=== PATIENT | female | born 1955 ===

== ENCOUNTER 2017-10-02 16:52 | Inpatient (IN) | payer OTHER ==
[2017-10-02 18:21] LABS: BASO % 0.5 % (0.0-2.0); EOS % 0.5 % (0.0-4.0); HEMOGLOBIN 8.5 g/dL (11.0-16.0); LYMPH # 2.8 K/uL (1.0-4.3); LYMPH % 37.4 % (20.0-40.0); MEAN CELL VOLUME 88.1 fL (81.0-99.0); MEAN CORPUSCULAR HEMOGLOBIN 27.8 pg (27.0-31.0); MEAN CORPUSCULAR HGB CONC 31.6 g/dL (33.0-37.0); MEAN PLATELET VOLUME 8.9 fL (7.2-11.7); MONO # 0.4 K/uL (0.0-0.8); MONO % 5.4 % (0.0-10.0); NEUT # 4.2 K/uL (1.8-7.0); NEUT % 56.2 % (50.0-75.0); NRBC % 0.1 % (0.0-2.0); RBC 3.06 Mil/uL (3.80-5.20); RED CELL DISTRIBUTION WIDTH 24.2 % (11.5-14.5); WHITE BLOOD COUNT 7.5 K/uL (4.8-10.8)
[2017-10-02 18:43] LABS: INR 1.1; PROTHROMBIN TIME 11.9 SECONDS (9.7-12.2)
[2017-10-02 18:44] LABS: ALBUMIN 4.3 g/dL (3.5-5.0); ALT/SGPT 32 U/L (9-52); AST/SGOT 39 U/L (14-36); BLOOD UREA NITROGEN 14 mg/dL (7-17); CALCIUM 9.5 mg/dl (8.6-10.4); GFR AFRICAN-AMERICAN > 60; GFR NON-AFRICAN AMERICAN > 60
[2017-10-02 18:56] LABS: B-TYPE NATRIURETIC PEPTIDE 1110 pg/mL (0-900)
--- NOTE | 2017-10-02 20:47 | C.PDOC ---
History Of Present Illness Pt was sent in by Dr. Krishnan for admission due to anemia, abnormal EKG and symptomatic pt. Time Seen by Provider: 10/02/17 17:47 Chief Complaint (Nursing): Shortness Of Breath History Per: Patient Onset/Duration Of Symptoms: Days Current Symptoms Are (Timing): Still Present Exacerbating Factor(s): Exertion Severity: Moderate Associated Symptoms: Heart Racing, Light-headedness, Other (Malaise/weakness) Additional History Per: Prior Records Past Medical History Reviewed: Historical Data, Nursing Documentation, Vital Signs Vital Signs: Last Vital Signs Temp 99.1 F 10/02/17 19:57 Pulse 75 10/02/17 19:57 Resp 20 10/02/17 19:57 BP 116/57 L 10/02/17 19:57 Pulse Ox 97 10/02/17 19:57 - Medical History PMH: HTN, Hypercholesterolemia Surgical History: Appendectomy, Cholecystectomy Family History: States: Unknown Family Hx - Social History Hx Alcohol Use: No Hx Substance Use: No - Immunization History Hx Tetanus Toxoid Vaccination: No Hx Influenza Vaccination: Yes Hx Pneumococcal Vaccination: Yes Review Of Systems Except As Marked, All Systems Reviewed And Found Negative. Constitutional: Positive for: Malaise. Negative for: Fever Cardiovascular: Positive for: Light Headedness. Negative for: Chest Pain Respiratory: Positive for: SOB with Excertion. Negative for: Hemoptysis Gastrointestinal: Negative for: Vomiting, Abdominal Pain Musculoskeletal: Negative for: Neck Pain Skin: Negative for: Rash Neurological: Negative for: Weakness, Numbness, Seizures Physical Exam - Physical Exam Appears: Non-toxic, No Acute Distress Skin: Warm, Dry, Pale Head: Atraumatic, Normacephalic Eye(s): bilateral: PERRL, EOMI Neck: Normal ROM, Supple Cardiovascular: Rhythm Regular Respiratory: Normal Breath Sounds, No Accessory Muscle Use Gastrointestinal/Abdominal: Soft, No Tenderness Rectal: Heme Negative, No Mass Back: No CVA Tenderness Extremity: Normal ROM, Pedal Edema, No Calf Tenderness Neurological/Psych: Oriented x3, Normal Motor, Normal Sensation ED Course And Treatment - Laboratory Results Result Diagrams: 10/02/17 18:14 10/02/17 18:14 Lab Interpretation: Abnormal Interpretation Of Abnormal: Anemia. Elevated BNP. ECG: Interpreted By Me, Viewed By Me ECG Rhythm: Sinus Rhythm, Nonspecific Changes ECG Interpretation: Abnormal Interpretation Of ECG: LVH with strain pattern Rate From EC O2 Sat by Pulse Oximetry: 97 Pulse Ox Interpretation: Normal - Radiology CXR: Interpreted by Me, Viewed By Me CXR Interpretation: Yes: Cardiomegaly Disposition Discussed With DrTrey: Teofilo Baker Comment: He accepted pt on hospitalist service. Doctor Will See Patient In The: Hospital Counseled Patient/Family Regarding: Studies Performed, Diagnosis - Disposition Disposition: HOSPITALIZED Disposition Time: 20:30 Condition: FAIR - Clinical Impression Clinical Impression: New onset of congestive heart failure, Anemia
--- NOTE | 2017-10-02 21:45 | CP.PCM.HP ---
<Melany Nails - Last Filed: 10/03/17 00:22> History of Present Illness - History of Present Illness History of Present Illness: CC: "I have anemia." HPI: 62 year old female with past medical history of new onset anemia, HTN and HLD presents to the ER for anemia. Patient was sent over by Dr. Krishnan due to lab values. Patient states she was diagnosed when she went to have routine lab work done about a month ago. She states for the past month she has been feeling dizzy, tired, headache and palpitations. She states for the past month she can only walk one block and then she feels tired. She states she sleeps with 2 pillows (unchanged for 5 years). She states the palpitations are primarily when she wakes up in the morning and last for a few seconds and then go away. She states she drinks cold water in the morning and it helps her palpitations stop. She states she notices her legs are swollen sometimes. 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 She denies chest pain, shortness of breath, nausea, vomiting, diarrhea, constipation, hematochezia, dysuria, hematuria, weight loss or weight gain, recent travel or sick contacts. PMD: Patrice Paceuraniadelmar Metal Mixer: Dr. Krishnan Industrial Maintenance Electrician: Dr. Effie Tavares Past Medical History: new onset anemia, HTN and HLD, chronic right shoulder pain due to overuse (due to occupation) Past Surgical History: , appendectomy, vaginal gland removal, cyst removed from left breast x3, cholecystectomy, colonoscopy (May 2018/Normal) , endoscopy (May 2018/normal) Medications: Patient did not recall medications; Spoke with pharmacy ([address]) who confirmed her home medications: Norvasc 10mg daily; Metoprolol XL 100mg daily, Losartan/HCTZ 100/25 daily; Lipitor 20mg daily; Xanax 1mg HS; Prednisone 50mg bid Allergies: NKDA Family History: Mom passed of [place] age 93; Dad passed of [place] age 64; Brother passed of [place] age 55 Social History: Quit smoking 25 years ago, smoked for 20 years about 4-5 cigarettes per day; Denies alcohol or illicit drug use. 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[email or web address]) Present on Admission - Present on Admission Any Indicators Present on Admission: No Review of Systems - Constitutional Constitutional: absent: Chills, Fever - EENT Eyes: absent: Blurred Vision, Change in Vision - Cardiovascular Cardiovascular: Lightheadedness, Palpitations, Pedal Edema. absent: Chest Pain , Dyspnea - Respiratory Respiratory: absent: Dyspnea, Dyspnea on Exertion - Gastrointestinal Gastrointestinal: absent: Abdominal Pain, Constipation, Nausea, Vomiting - Genitourinary Genitourinary: absent: Dysuria - Musculoskeletal Musculoskeletal: Other (chronic right shoulder pain ) - Neurological Neurological: Dizziness, Headaches Past Patient History - Past Medical History & Family History Past Medical History?: Yes - Past Social History Smoking Status: Never Smoked - CARDIAC Hx Hypercholesterolemia: Yes Hx Hypertension: Yes - PULMONARY Hx Respiratory Disorders: No - NEUROLOGICAL Hx Neurological Disorder: No - HEENT Hx HEENT Problems: No - RENAL Hx Chronic Kidney Disease: No - ENDOCRINE/METABOLIC Hx Endocrine Disorders: No - HEMATOLOGICAL/ONCOLOGICAL Hx Blood Disorders: No - INTEGUMENTARY Hx Dermatological Problems: No - MUSCULOSKELETAL/RHEUMATOLOGICAL Hx Musculoskeletal Disorders: Yes Hx Back Pain: Yes Hx Osteoarthritis: Yes - GASTROINTESTINAL Hx Gastrointestinal Disorders: No - GENITOURINARY/GYNECOLOGICAL Hx Genitourinary Disorders: No - PSYCHIATRIC Hx Substance Use: No - SURGICAL HISTORY Hx Appendectomy: Yes Hx Cholecystectomy: Yes - ANESTHESIA Hx Anesthesia: Yes Hx Anesthesia Reactions: No Hx Malignant Hyperthermia: No Meds Allergies/Adverse Reactions: Allergies Allergy/AdvReac Type Severity Reaction Status Date / Time No Known Allergies Allergy Verified 10/02/17 17:08 Physical Exam - Constitutional Appears: No Acute Distress - Head Exam Head Exam: ATRAUMATIC, NORMAL INSPECTION - Eye Exam Eye Exam: EOMI, Normal appearance - ENT Exam ENT Exam: Mucous Membranes Moist - Respiratory Exam Respiratory Exam: Clear to Auscultation Bilateral, NORMAL BREATHING PATTERN. absent: Decreased Breath Sounds, Rales, Rhonchi, Wheezes, Stridor - Cardiovascular Exam Cardiovascular Exam: REGULAR RHYTHM, RRR, +S1, +S2, Systolic Murmur. absent: JVD - GI/Abdominal Exam GI & Abdominal Exam: Normal Bowel Sounds, Soft. absent: Distended, Firm, Tenderness - Extremities Exam Extremities exam: Positive for: normal capillary refill, pedal edema, pedal pulses present. Negative for: joint swelling, tenderness - Neurological Exam Neurological exam: Alert, CN II-XII Intact, Oriented x3 - Expanded Neurological Exam Expanded Patient oriented to: person, place, time Upper motor neuron: Babinski Sign: Normal, Pronator Drift: Normal Sensory exam: Lower Extremity Light Touch: Normal, Upper Extremity Light Touch: Normal Neuro motor strength exam: Left Upper Extremity: 5, Right Upper Extremity: 5, Left Lower Extremity: 5, Right Lower Extremity: 5 Coma Scale Eye Opening: SPONTANEOUS Coma Scale Motor Response: OBEYS COMMANDS - Psychiatric Exam Psychiatric exam: Normal Affect, Normal Mood - Skin Skin Exam: Dry, Intact, Normal Color Results - Vital Signs Recent Vital Signs: Last Vital Signs Temp 99.1 F 10/02/17 19:57 Pulse 87 10/02/17 20:56 Resp 18 10/02/17 20:56 BP 128/68 10/02/17 20:56 Pulse Ox 98 10/02/17 20:56 - Labs Result Diagrams: 10/02/17 18:14 10/02/17 18:14 Labs: Laboratory Results - last 24 hr 10/02/17 10/02/17 10/02/17 18:14 18:14 18:14 WBC 7.5 RBC 3.06 L Hgb 8.5 L D Hct 27.0 L MCV 88.1 D MCH 27.8 MCHC 31.6 L RDW 24.2 H Plt Count 166 MPV 8.9 Neut % (Auto) 56.2 Lymph % (Auto) 37.4 Jasper % (Auto) 5.4 Eos % (Auto) 0.5 Baso % (Auto) 0.5 Neut # (Auto) 4.2 Lymph # (Auto) 2.8 Jasper # (Auto) 0.4 Eos # (Auto) 0.0 Baso # (Auto) 0.0 PT 11.9 INR 1.1 APTT 31 Sodium 141 Potassium 3.6 Chloride 97 L Carbon Dioxide 28 Anion Gap 20 BUN 14 Creatinine 0.6 L Est GFR ( Amer) > 60 Est GFR (Non-Af Amer) > 60 Random Glucose 100 Calcium 9.5 Total Bilirubin 0.6 AST 39 H D ALT 32 Alkaline Phosphatase 79 Troponin I 0.0180 NT-Pro-B Natriuret Pep 1110 H Total Protein 8.7 H Albumin 4.3 Globulin 4.4 H Albumin/Globulin Ratio 1.0 Stool Occult Blood Blood Type Antibody Screen 10/02/17 10/02/17 18:14 19:21 WBC RBC Hgb Hct MCV MCH MCHC RDW Plt Count MPV Neut % (Auto) Lymph % (Auto) Jasper % (Auto) Eos % (Auto) Baso % (Auto) Neut # (Auto) Lymph # (Auto) Jasper # (Auto) Eos # (Auto) Baso # (Auto) PT INR APTT Sodium Potassium Chloride Carbon Dioxide Anion Gap BUN Creatinine Est GFR ( Amer) Est GFR (Non-Af Amer) Random Glucose Calcium Total Bilirubin AST ALT Alkaline Phosphatase Troponin I NT-Pro-B Natriuret Pep Total Protein Albumin Globulin Albumin/Globulin Ratio Stool Occult Blood Negative Blood Type O POSITIVE Antibody Screen Negative Assessment & Plan - Assessment and Plan (Free Text) Assessment: 1.) Abnormal EKG changes - EKG: NSR rate of 74; Ischemic changes in the lateral/inferior leads - possibly secondary to Anemia vs. New onset CHF - Cardio: Dr. Krishnan --> help appreciated - Dr. Krishnan was Notified - Trop negative - f/u trop x2 2.) New Onset CHF - proBNP: 1110 - f/u official chest xray: cardiomegaly - Cardio Consult: Dr. Krishnan --> help appreciated - Lasix 40 IV given in ER - Lasix 20mg po daily - Aspirin 81mg daily - Continue 2L NC - Trop negative - f/u trop x2 - f/u ECHO - f/u TSH and T4 3.) One month onset of Anemia - H/H 8.11/30 - Spoke with patient's asp net developer Dr. Tavares she states she believes this is due to hemolysis but would like further workup: - f/u Iron studies, LDH, Haptoglobin, Direct Pratt - Please call Dr. Tavares in the AM with results because if normal patient can continue follow up as outpatient - Dr. Tavares also request CT of chest/abd/pelvis with IV/PO Contrast - please all Dr. Tavares with results - Patient was on Prednisone 50mg BID at home Dr. Tavares requested Ольга-Medrol 60IV q12h - Spoke with Dr. Krishnan and requested one unit of PRBC to be given - Stool Occult Negative - Continue to Monitor 4.) History of HTN - Continue home medication Norvasc 10mg daily hold if systolic bp<100 - Continue home medication Metoprolol XL 100mg daily hold if systolic bp <100 and HR <60 - per Dr. Krishnan request did not restart Losartan/HCTZ 100/25 due to stable b/p 5.) History of HLD - Crestor 10mg HS - f/u lipid panel 6.) Prophylaxis - Pepcid 20mg daily - Heparin q8SC - Heart Healthy Diet Case discussed with Dr. Olivia Nails PGY-1 <Teofilo Baker - Last Filed: 10/03/17 06:32> Results - Vital Signs Recent Vital Signs: Last Vital Signs Temp 98.3 F 10/03/17 04:16 Pulse 78 10/03/17 04:16 Resp 18 10/03/17 04:16 BP 112/66 10/03/17 04:16 Pulse Ox 97 10/02/17 23:30 - Labs Result Diagrams: 10/02/17 18:14 10/02/17 18:14 Labs: Laboratory Results - last 24 hr 10/02/17 10/02/17 10/02/17 18:14 18:14 18:14 WBC 7.5 RBC 3.06 L Hgb 8.5 L D Hct 27.0 L MCV 88.1 D MCH 27.8 MCHC 31.6 L RDW 24.2 H Plt Count 166 MPV 8.9 Neut % (Auto) 56.2 Lymph % (Auto) 37.4 Jasper % (Auto) 5.4 Eos % (Auto) 0.5 Baso % (Auto) 0.5 Neut # (Auto) 4.2 Lymph # (Auto) 2.8 Jasper # (Auto) 0.4 Eos # (Auto) 0.0 Baso # (Auto) 0.0 Retic Count Haptoglobin PT 11.9 INR 1.1 APTT 31 Sodium 141 Potassium 3.6 Chloride 97 L Carbon Dioxide 28 Anion Gap 20 BUN 14 Creatinine 0.6 L Est GFR ( Amer) > 60 Est GFR (Non-Af Amer) > 60 Random Glucose 100 Calcium 9.5 Iron TIBC % Saturation Ferritin Total Bilirubin 0.6 AST 39 H D ALT 32 Alkaline Phosphatase 79 Lactate Dehydrogenase Troponin I 0.0180 NT-Pro-B Natriuret Pep 1110 H Total Protein 8.7 H Albumin 4.3 Globulin 4.4 H Albumin/Globulin Ratio 1.0 Stool Occult Blood Blood Type Antibody Screen MARIAELENA, Poly Interpret 10/02/17 10/02/17 10/02/17 18:14 19:21 22:39 WBC RBC Hgb Hct MCV MCH MCHC RDW Plt Count MPV Neut % (Auto) Lymph % (Auto) Jasper % (Auto) Eos % (Auto) Baso % (Auto) Neut # (Auto) Lymph # (Auto) Jasper # (Auto) Eos # (Auto) Baso # (Auto) Retic Count 4.7 H Haptoglobin PT INR APTT Sodium Potassium Chloride Carbon Dioxide Anion Gap BUN Creatinine Est GFR ( Amer) Est GFR (Non-Af Amer) Random Glucose Calcium Iron TIBC % Saturation Ferritin Total Bilirubin AST ALT Alkaline Phosphatase Lactate Dehydrogenase Troponin I NT-Pro-B Natriuret Pep Total Protein Albumin Globulin Albumin/Globulin Ratio Stool Occult Blood Negative Blood Type O POSITIVE Antibody Screen Negative MARIAELENA, Poly Interpret Negative 10/02/17 10/02/17 10/02/17 22:39 22:39 22:39 WBC RBC Hgb Hct MCV MCH MCHC RDW Plt Count MPV Neut % (Auto) Lymph % (Auto) Jasper % (Auto) Eos % (Auto) Baso % (Auto) Neut # (Auto) Lymph # (Auto) Jasper # (Auto) Eos # (Auto) Baso # (Auto) Retic Count Haptoglobin PT INR APTT Sodium Potassium Chloride Carbon Dioxide Anion Gap BUN Creatinine Est GFR ( Amer) Est GFR (Non-Af Amer) Random Glucose Calcium Iron 70 TIBC 448 % Saturation 15 L Ferritin 57.7 Total Bilirubin AST ALT Alkaline Phosphatase Lactate Dehydrogenase 475 Troponin I NT-Pro-B Natriuret Pep Total Protein Albumin Globulin Albumin/Globulin Ratio Stool Occult Blood Blood Type Antibody Screen MARIAELENA, Poly Interpret 10/02/17 22:39 WBC RBC Hgb Hct MCV MCH MCHC RDW Plt Count MPV Neut % (Auto) Lymph % (Auto) Jasper % (Auto) Eos % (Auto) Baso % (Auto) Neut # (Auto) Lymph # (Auto) Jasper # (Auto) Eos # (Auto) Baso # (Auto) Retic Count Haptoglobin 116.4 PT INR APTT Sodium Potassium Chloride Carbon Dioxide Anion Gap BUN Creatinine Est GFR ( Amer) Est GFR (Non-Af Amer) Random Glucose Calcium Iron TIBC % Saturation Ferritin Total Bilirubin AST ALT Alkaline Phosphatase Lactate Dehydrogenase Troponin I NT-Pro-B Natriuret Pep Total Protein Albumin Globulin Albumin/Globulin Ratio Stool Occult Blood Blood Type Antibody Screen MARIAELENA, Poly Interpret Assessment & Plan - Date & Time Date: 10/03/17 (I have seen and examined the patient. I agree with the findings and plan of care as documented by Dr. Nails. Patient with new onset CHF and abnormal EKG. Consult to Dr. Krishnan. Aspirin and Statin. ROMIx3. Lasix IV. Anemia. Consult to Dr. Tavares. Change prenisone to solumedrol. Anemia work up. Monitor for acute changes.) Time: 06:30 Attending/Attestation - Attestation I have personally seen and examined this patient.: Yes I have fully participated in the care of the patient.: Yes I have reviewed all pertinent clinical information: Yes
[2017-10-02] MEDS ORDERED: MethylPREDNISolone 40 mg Vial ONE (22:44)
[2017-10-02 22:57] LABS: IRON 70 ug/dL (37-170)
[2017-10-02 23:07] LABS: TOTAL IRON BINDING CAPACITY 448 ug/dL (250-450)
[2017-10-02 23:33] LABS: FERRITIN 57.7 ng/mL
[2017-10-03 07:31] LABS: BASO % 0.5 % (0.0-2.0); HEMOGLOBIN 9.5 g/dL (11.0-16.0); LYMPH # 1.3 K/uL (1.0-4.3); LYMPH % 23.4 % (20.0-40.0); MEAN CELL VOLUME 87.1 fL (81.0-99.0); MEAN CORPUSCULAR HEMOGLOBIN 28.8 pg (27.0-31.0); MEAN PLATELET VOLUME 9.4 fL (7.2-11.7); MONO # 0.1 K/uL (0.0-0.8); NEUT # 4.2 K/uL (1.8-7.0); NEUT % 75.1 % (50.0-75.0); NRBC % 0.1 % (0.0-2.0); RBC 3.29 Mil/uL (3.80-5.20); RED CELL DISTRIBUTION WIDTH 22.3 % (11.5-14.5); WHITE BLOOD COUNT 5.6 K/uL (4.8-10.8)
[2017-10-03 07:33] LABS: ALB/GLOB RATIO 1.1 (1.0-2.1); ALBUMIN 4.1 g/dL (3.5-5.0); ALT/SGPT 25 U/L (9-52); AST/SGOT 30 U/L (14-36); BLOOD UREA NITROGEN 16 mg/dL (7-17); CALCIUM 9.2 mg/dl (8.6-10.4); GFR AFRICAN-AMERICAN > 60; GFR NON-AFRICAN AMERICAN > 60; HDL CHOLESTEROL 46 mg/dL (30-70)
[2017-10-03 07:43] LABS: LDL CHOLESTEROL 142 mg/dL (0-129)
--- NOTE | 2017-10-03 08:09 | RAD ---
Chest x-ray two views History: Shortness of breath. Comparison: None available. Findings: Mild venous congestion. Right hilar prominence. Mild atelectatic changes in the right midlung zone. Top normal heart size. Degenerative changes in the spine and shoulders. Impression: Mild venous congestion. Right hilar prominence. Mild atelectatic changes in the right midlung zone. Top normal heart size.
[2017-10-03] MEDS ORDERED: Iohexol 240 (50 ml) PO ONE (08:30)
[2017-10-03] MEDS: Metoprolol Succinate 100 mg XL Tab PO SCH (09:14)
[2017-10-03] MEDS ORDERED: Potassium Chloride 20 mEq ER Tab PO SCH (10:00)
[2017-10-03] MEDS ORDERED: Iodixanol 320 MG/ML 100 ML BOTTLE IV ONE (10:28)
--- NOTE | 2017-10-03 10:35 | CP.PCM.CON ---
Addendum entered and electronically signed by Gavino Jasso DO 10/03/17 16:41: f/u EKG on 10/04/17 in AM. prior ekg with ST changes, another ekg which was normal. Unstable nature may require cardiac cath on Friday10/06/17. Original Note: <Gavino Jasso - Last Filed: 10/03/17 15:34> History of Present Illness - History of Present Illness History of Present Illness: PGY2 Cardiology Consult Note for Dr. Krishnan This 62 year old female with PMHx of new onset anemia, HTN and HLD presents to the ER for anemia. Patient was sent over by Dr. Krishnan due to lab values. Patient states she was diagnosed when she went to have routine lab work done about a month ago. She states for the past month she has been feeling dizzy, tired, headache and palpitations. She can only walk 1 block and often becomes tired [id number]. She sleeps with 2 pillows (baseline for past 5 years). C/o palpitations in the morning, lasting for several sec after awakening. Drinking cold water helps stop her palpitations. She works as a seamstress, and notices that her legs become swollen after prolonged periods of sitting. Patient seen and examined at bedside this AM. Denies chest pain, SOB, over LE swelling. She is resting comfortably and offers no acute complaints. Although her LE appear mildly swollen w/o pitting, she states this is her baseline. PMD: [employer] Pace [employer]: Dr. Krishnan Pest Control Pilot: Dr. Effie Tavares Past Medical History: new onset anemia, HTN and HLD, chronic right shoulder pain due to overuse (due to occupation) Past Surgical History: , appendectomy, vaginal gland removal, cyst removed from left breast x3, cholecystectomy, colonoscopy (May 2018/Normal) , endoscopy (May 2018/normal) Medications: Patient did not recall medications; Spoke with pharmacy ([address]) who confirmed her home medications: Norvasc 10mg daily; Metoprolol XL 100mg daily, Losartan/HCTZ 100/25 daily; Lipitor 20mg daily; Xanax 1mg HS; Prednisone 50mg bid Allergies: NKDA Family History: Mom passed of [place] age 93; Dad passed of [place] age 64; Brother passed of [place] age 55 Social History: Quit smoking 25 years ago, smoked for 20 years about 4-5 cigarettes per day; Denies alcohol or illicit drug use. 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[employer]) Review of Systems: -Gen: No fever, No chills, No headache, + lethargy, No weakness. -HEENT: No dizziness, +Light headed, No change in vision, No change in hearing, No sore throat, No dysphagia, No nasal congestion, No mucous. -Cardio: No chest pain, No palpitations, No lower extremity edema, No orthopnea. -Resp: No cough, No dyspnea, No hemoptysis, No wheezing, No pain on inspiration. -GI: No abdominal pain, No nausea/vomiting, No diarrhea/constipation, No hematochezia, No hematemesis. -: No dysuria, No urinary freq, No incontinence, No hematuria, No change in urinary stream. -MSK: No back pain, No muscle weakness, No radiating pain, +LE swelling (at baseline) -Skin: No itching, No rash, No lesions. -Neuro: No confusion, No numbness, No tingling, No focal weakness, No radicular pain, No syncope. -Psych: No anxiety, No depression, No H/I, No S/I, No hallucinations. Past Patient History - Past Medical History & Family History Past Medical History?: Yes - Past Social History Smoking Status: Never Smoked - CARDIAC Hx Hypercholesterolemia: Yes Hx Hypertension: Yes - PULMONARY Hx Respiratory Disorders: No - NEUROLOGICAL Hx Neurological Disorder: No - HEENT Hx HEENT Problems: No - RENAL Hx Chronic Kidney Disease: No - ENDOCRINE/METABOLIC Hx Endocrine Disorders: No - HEMATOLOGICAL/ONCOLOGICAL Hx Blood Disorders: No - INTEGUMENTARY Hx Dermatological Problems: No - MUSCULOSKELETAL/RHEUMATOLOGICAL Hx Musculoskeletal Disorders: Yes Hx Back Pain: Yes Hx Falls: No Hx Osteoarthritis: Yes - GASTROINTESTINAL Hx Gastrointestinal Disorders: No - GENITOURINARY/GYNECOLOGICAL Hx Genitourinary Disorders: No - PSYCHIATRIC Hx Substance Use: No - SURGICAL HISTORY Hx Appendectomy: Yes Hx Cholecystectomy: Yes - ANESTHESIA Hx Anesthesia: Yes Hx Anesthesia Reactions: No Hx Malignant Hyperthermia: No Meds Allergies/Adverse Reactions: Allergies Allergy/AdvReac Type Severity Reaction Status Date / Time No Known Allergies Allergy Verified 10/02/17 17:08 - Medications Medications: Current Medications Amlodipine Besylate (Norvasc) 10 mg PO DAILY [facility] Last Admin: 10/03/17 09:14 Dose: 10 mg Aspirin (Aspirin Chewable) 81 mg PO DAILY [facility] Last Admin: 10/03/17 09:15 Dose: 81 mg Famotidine (Pepcid) 20 mg PO DAILY [facility] Last Admin: 10/03/17 09:14 Dose: 20 mg Furosemide (Lasix) 20 mg PO DAILY [facility] Last Admin: 10/03/17 09:15 Dose: 20 mg Heparin Sodium (Porcine) (Heparin) 5,000 units SC Q8 [facility] Last Admin: 10/03/17 06:06 Dose: 5,000 units Methylprednisolone (Solu-Medrol) 60 mg IV Q12 [facility] Last Admin: 10/03/17 09:14 Dose: 60 mg Metoprolol Succinate (Toprol Xl) 100 mg PO DAILY [facility] Last Admin: 10/03/17 09:14 Dose: 100 mg Potassium Chloride (K-Dur 20 Meq Er Tab) 40 meq PO DAILY [facility] Last Admin: 10/03/17 09:15 Dose: 40 meq Rosuvastatin Calcium (Crestor) 10 mg PO HS [facility] Last Admin: 10/02/17 22:53 Dose: 10 mg Physical Exam - Additional Findings Additional findings: - Constitutional Appears: No Acute Distress - Head Exam Head Exam: ATRAUMATIC, NORMAL INSPECTION - Eye Exam Eye Exam: EOMI, Normal appearance - ENT Exam ENT Exam: Mucous Membranes Moist - Respiratory Exam Respiratory Exam: Clear to Auscultation Bilateral, NORMAL BREATHING PATTERN. absent: Decreased Breath Sounds, Rales, Rhonchi, Wheezes, Stridor - Cardiovascular Exam Cardiovascular Exam: REGULAR RHYTHM, RRR, +S1, +S2, Systolic Murmur. absent: JVD - GI/Abdominal Exam GI & Abdominal Exam: Normal Bowel Sounds, Soft. absent: Distended, Firm, Tenderness - Extremities Exam Extremities exam: Positive for: normal capillary refill, pedal edema (non- pitting), pedal pulses present. Negative for: joint swelling, tenderness - Neurological Exam Neurological exam: Alert, CN II-XII Intact, Oriented x3 - Psychiatric Exam Psychiatric exam: Normal Affect, Normal Mood - Skin Skin Exam: Dry, Intact, Normal Color Results - Vital Signs Recent Vital Signs: Last Vital Signs Temp 99.1 F 10/03/17 08:49 Pulse 81 10/03/17 08:49 Resp 20 10/03/17 08:49 BP 124/61 10/03/17 09:15 Pulse Ox 94 L 10/03/17 08:49 - Labs Result Diagrams: 10/03/17 07:11 10/03/17 07:11 Labs: Laboratory Results - last 24 hr 10/02/17 10/02/17 10/02/17 18:14 18:14 18:14 WBC 7.5 RBC 3.06 L Hgb 8.5 L D Hct 27.0 L MCV 88.1 D MCH 27.8 MCHC 31.6 L RDW 24.2 H Plt Count 166 MPV 8.9 Neut % (Auto) 56.2 Lymph % (Auto) 37.4 [place] % (Auto) 5.4 Eos % (Auto) 0.5 Baso % (Auto) 0.5 Neut # (Auto) 4.2 Lymph # (Auto) 2.8 [place] # (Auto) 0.4 Eos # (Auto) 0.0 Baso # (Auto) 0.0 Retic Count Haptoglobin PT 11.9 INR 1.1 APTT 31 Sodium 141 Potassium 3.6 Chloride 97 L Carbon Dioxide 28 Anion Gap 20 BUN 14 Creatinine 0.6 L Est GFR ( Amer) > 60 Est GFR (Non-Af Amer) > 60 Random Glucose 100 Hemoglobin A1c Calcium 9.5 Phosphorus Magnesium Iron TIBC % Saturation Ferritin Total Bilirubin 0.6 AST 39 H D ALT 32 Alkaline Phosphatase 79 Lactate Dehydrogenase Troponin I 0.0180 NT-Pro-B Natriuret Pep 1110 H Total Protein 8.7 H Albumin 4.3 Globulin 4.4 H Albumin/Globulin Ratio 1.0 Triglycerides Cholesterol LDL Cholesterol Direct HDL Cholesterol Free T4 TSH 3rd Generation Stool Occult Blood Blood Type Antibody Screen MARIAELENA, Poly Interpret 10/02/17 10/02/17 10/02/17 18:14 19:21 22:39 WBC RBC Hgb Hct MCV MCH MCHC RDW Plt Count MPV Neut % (Auto) Lymph % (Auto) [place] % (Auto) Eos % (Auto) Baso % (Auto) Neut # (Auto) Lymph # (Auto) [place] # (Auto) Eos # (Auto) Baso # (Auto) Retic Count 4.7 H Haptoglobin PT INR APTT Sodium Potassium Chloride Carbon Dioxide Anion Gap BUN Creatinine Est GFR ( Amer) Est GFR (Non-Af Amer) Random Glucose Hemoglobin A1c Calcium Phosphorus Magnesium Iron TIBC % Saturation Ferritin Total Bilirubin AST ALT Alkaline Phosphatase Lactate Dehydrogenase Troponin I NT-Pro-B Natriuret Pep Total Protein Albumin Globulin Albumin/Globulin Ratio Triglycerides Cholesterol LDL Cholesterol Direct HDL Cholesterol Free T4 TSH 3rd Generation Stool Occult Blood Negative Blood Type O POSITIVE Antibody Screen Negative MARIAELENA, Poly Interpret Negative 10/02/17 10/02/17 10/02/17 22:39 22:39 22:39 WBC RBC Hgb Hct MCV MCH MCHC RDW Plt Count MPV Neut % (Auto) Lymph % (Auto) [place] % (Auto) Eos % (Auto) Baso % (Auto) Neut # (Auto) Lymph # (Auto) [place] # (Auto) Eos # (Auto) Baso # (Auto) Retic Count Haptoglobin PT INR APTT Sodium Potassium Chloride Carbon Dioxide Anion Gap BUN Creatinine Est GFR ( Amer) Est GFR (Non-Af Amer) Random Glucose Hemoglobin A1c Calcium Phosphorus Magnesium Iron 70 TIBC 448 % Saturation 15 L Ferritin 57.7 Total Bilirubin AST ALT Alkaline Phosphatase Lactate Dehydrogenase 475 Troponin I NT-Pro-B Natriuret Pep Total Protein Albumin Globulin Albumin/Globulin Ratio Triglycerides Cholesterol LDL Cholesterol Direct HDL Cholesterol Free T4 TSH 3rd Generation Stool Occult Blood Blood Type Antibody Screen MARIAELENA, Poly Interpret 10/02/17 10/03/17 10/03/17 22:39 07:11 07:11 WBC 5.6 RBC 3.29 L Hgb 9.5 L Hct 28.7 L MCV 87.1 MCH 28.8 MCHC 33.0 RDW 22.3 H Plt Count 140 MPV 9.4 Neut % (Auto) 75.1 H Lymph % (Auto) 23.4 [place] % (Auto) 1.0 Eos % (Auto) 0.0 Baso % (Auto) 0.5 Neut # (Auto) 4.2 Lymph # (Auto) 1.3 [place] # (Auto) 0.1 Eos # (Auto) 0.0 Baso # (Auto) 0.0 Retic Count Haptoglobin 116.4 PT INR APTT Sodium Potassium Chloride Carbon Dioxide Anion Gap BUN Creatinine Est GFR ( Amer) Est GFR (Non-Af Amer) Random Glucose Hemoglobin A1c Calcium Phosphorus Magnesium Iron TIBC % Saturation Ferritin Total Bilirubin AST ALT Alkaline Phosphatase Lactate Dehydrogenase Troponin I < 0.0120 NT-Pro-B Natriuret Pep Total Protein Albumin Globulin Albumin/Globulin Ratio Triglycerides Cholesterol LDL Cholesterol Direct HDL Cholesterol Free T4 TSH 3rd Generation Stool Occult Blood Blood Type Antibody Screen MARIAELENA, Poly Interpret 10/03/17 10/03/17 10/03/17 07:11 07:11 07:11 WBC RBC Hgb Hct MCV MCH MCHC RDW Plt Count MPV Neut % (Auto) Lymph % (Auto) [place] % (Auto) Eos % (Auto) Baso % (Auto) Neut # (Auto) Lymph # (Auto) [place] # (Auto) Eos # (Auto) Baso # (Auto) Retic Count Haptoglobin PT INR APTT Sodium 142 Potassium 3.2 L Chloride 96 L Carbon Dioxide 27 Anion Gap 22 H BUN 16 Creatinine 0.7 Est GFR ( Amer) > 60 Est GFR (Non-Af Amer) > 60 Random Glucose 145 H Hemoglobin A1c 5.3 Calcium 9.2 Phosphorus 3.5 Magnesium 1.4 L Iron TIBC % Saturation Ferritin Total Bilirubin 1.0 AST 30 ALT 25 Alkaline Phosphatase 83 Lactate Dehydrogenase Troponin I NT-Pro-B Natriuret Pep Total Protein 7.9 Albumin 4.1 Globulin 3.7 Albumin/Globulin Ratio 1.1 Triglycerides 90 D Cholesterol 200 H LDL Cholesterol Direct 142 H HDL Cholesterol 46 Free T4 1.49 TSH 3rd Generation 1.52 Stool Occult Blood Blood Type Antibody Screen MARIAELENA, Poly Interpret Assessment & Plan - Assessment and Plan (Free Text) Assessment: Unstable Angina 10/03: Patient is NPO past MN for Mandi Stress Test this friday10/06/17. K 3.2; Mg 1.4 -> repleted f/u CMP, Mag, Phos at 20:00 - EKG: NSR rate of 74; Ischemic changes in the lateral/inferior leads - possibly secondary to Anemia vs. New onset CHF - Trop negative x2 -Further Cardiac workup in progress. Acute CHF - proBNP: 1110 - CXR: cardiomegaly - Lasix 40 IV given in ER - Lasix 20mg po daily - Aspirin 81mg daily - Continue 2L NC - Trop negative x2 - f/u ECHO History of HTN - Continue home medication Norvasc 10mg daily hold if systolic bp<100 - Continue home medication Metoprolol XL 100mg daily hold if systolic bp <100 and HR <60 - did not restart Losartan/HCTZ 100/25 due to stable b/p History of HLD - Crestor 10mg HS - FLP- C 200 / LDL 142 / HDL 46 / T 90 Anemia - H/H 8.5/27 -> 1u PRBC given -> - Spoke with patient's nurse practitioner adult Dr. Tavares she states she believes this is due to hemolysis but would like further workup: - Iron studies, LDH, Haptoglobin, Direct Pratt - Patient was on Prednisone 50mg BID at home Dr. Tavares requested Ольга-Medrol 60IV q12h - Stool Occult Negative - Continue to Monitor Case Discussed with Dr. Eulogio Jasso, PGY2 - Date & Time Date: 10/03/17 Time: 09:00 <Joey Krishnan - Last Filed: 10/03/17 21:59> Meds - Medications Medications: Current Medications Acetaminophen (Tylenol 325mg Tab) 650 mg PO Q6 PRN PRN Reason: Pain, moderate (4-7) Amlodipine Besylate (Norvasc) 10 mg PO DAILY [facility] Last Admin: 10/03/17 09:14 Dose: 10 mg Aspirin (Aspirin Chewable) 81 mg PO DAILY [facility] Last Admin: 10/03/17 09:15 Dose: 81 mg Famotidine (Pepcid) 20 mg PO DAILY [facility] Last Admin: 10/03/17 09:14 Dose: 20 mg Furosemide (Lasix) 20 mg PO DAILY [facility] Last Admin: 10/03/17 09:15 Dose: 20 mg Heparin Sodium (Porcine) (Heparin) 5,000 units SC Q8 [facility] Last Admin: 10/03/17 14:05 Dose: 5,000 units Ciprofloxacin (Cipro 400mg/200ml Dsw) 400 mg in 200 mls @ 133 mls/hr IVPB Q12H [facility] PRN Reason: Protocol Last Admin: 10/03/17 19:57 Dose: 133 mls/hr Metronidazole (Flagyl) 500 mg in 100 mls @ 100 mls/hr IVPB Q8 [facility] PRN Reason: Protocol Last Admin: 10/03/17 19:55 Dose: 100 mls/hr Methylprednisolone (Solu-Medrol) 60 mg IV Q12 [facility] Last Admin: 10/03/17 09:14 Dose: 60 mg Metoprolol Succinate (Toprol Xl) 100 mg PO DAILY [facility] Last Admin: 10/03/17 09:14 Dose: 100 mg Morphine Sulfate (Morphine) 1 mg IVP Q4H PRN PRN Reason: Pain, moderate (4-7) Last Admin: 10/03/17 17:59 Dose: 1 mg Prednisone (Prednisone Tab) 30 mg PO DAILY [facility] Rosuvastatin Calcium (Crestor) 10 mg PO HS [facility] Last Admin: 10/02/17 22:53 Dose: 10 mg Results - Vital Signs Recent Vital Signs: Last Vital Signs Temp 97.9 F 10/03/17 16:30 Pulse 80 10/03/17 16:30 Resp 20 10/03/17 16:30 BP 142/72 10/03/17 16:30 Pulse Ox 96 10/03/17 16:30 - Labs Result Diagrams: 10/03/17 07:11 10/03/17 19:42 Labs: Laboratory Results - last 24 hr 10/02/17 10/02/17 10/02/17 18:14 22:39 22:39 WBC RBC Hgb Hct MCV MCH MCHC RDW Plt Count MPV Neut % (Auto) Lymph % (Auto) [place] % (Auto) Eos % (Auto) Baso % (Auto) Neut # (Auto) Lymph # (Auto) [place] # (Auto) Eos # (Auto) Baso # (Auto) Retic Count 4.7 H Haptoglobin Sodium Potassium Chloride Carbon Dioxide Anion Gap BUN Creatinine Est GFR ( Amer) Est GFR (Non-Af Amer) Random Glucose Hemoglobin A1c Calcium Phosphorus Magnesium Iron TIBC % Saturation Ferritin 57.7 Total Bilirubin AST ALT Alkaline Phosphatase Lactate Dehydrogenase 475 Troponin I Total Protein Albumin Globulin Albumin/Globulin Ratio Triglycerides Cholesterol LDL Cholesterol Direct HDL Cholesterol Free T4 TSH 3rd Generation Blood Type O POSITIVE Antibody Screen Negative MARIAELENA, Poly Interpret Negative 10/02/17 10/02/17 10/02/17 22:39 22:39 22:39 WBC RBC Hgb Hct MCV MCH MCHC RDW Plt Count MPV Neut % (Auto) Lymph % (Auto) [place] % (Auto) Eos % (Auto) Baso % (Auto) Neut # (Auto) Lymph # (Auto) [place] # (Auto) Eos # (Auto) Baso # (Auto) Retic Count Haptoglobin 116.4 Sodium Potassium Chloride Carbon Dioxide Anion Gap BUN Creatinine Est GFR ( Amer) Est GFR (Non-Af Amer) Random Glucose Hemoglobin A1c Calcium Phosphorus Magnesium Iron 70 TIBC 448 % Saturation 15 L Ferritin Total Bilirubin AST ALT Alkaline Phosphatase Lactate Dehydrogenase Troponin I Total Protein Albumin Globulin Albumin/Globulin Ratio Triglycerides Cholesterol LDL Cholesterol Direct HDL Cholesterol Free T4 TSH 3rd Generation Blood Type Antibody Screen MARIAELENA, Poly Interpret 10/03/17 10/03/17 10/03/17 07:11 07:11 07:11 WBC 5.6 RBC 3.29 L Hgb 9.5 L Hct 28.7 L MCV 87.1 MCH 28.8 MCHC 33.0 RDW 22.3 H Plt Count 140 MPV 9.4 Neut % (Auto) 75.1 H Lymph % (Auto) 23.4 [place] % (Auto) 1.0 Eos % (Auto) 0.0 Baso % (Auto) 0.5 Neut # (Auto) 4.2 Lymph # (Auto) 1.3 [place] # (Auto) 0.1 Eos # (Auto) 0.0 Baso # (Auto) 0.0 Retic Count Haptoglobin Sodium 142 Potassium 3.2 L Chloride 96 L Carbon Dioxide 27 Anion Gap 22 H BUN 16 Creatinine 0.7 Est GFR ( Amer) > 60 Est GFR (Non-Af Amer) > 60 Random Glucose 145 H Hemoglobin A1c Calcium 9.2 Phosphorus 3.5 Magnesium 1.4 L Iron TIBC % Saturation Ferritin Total Bilirubin 1.0 AST 30 ALT 25 Alkaline Phosphatase 83 Lactate Dehydrogenase Troponin I < 0.0120 Total Protein 7.9 Albumin 4.1 Globulin 3.7 Albumin/Globulin Ratio 1.1 Triglycerides 90 D Cholesterol 200 H LDL Cholesterol Direct 142 H HDL Cholesterol 46 Free T4 TSH 3rd Generation 1.52 Blood Type Antibody Screen MARIAELENA, Poly Interpret 10/03/17 10/03/17 10/03/17 07:11 07:11 19:32 WBC RBC Hgb Hct MCV MCH MCHC RDW Plt Count MPV Neut % (Auto) Lymph % (Auto) [place] % (Auto) Eos % (Auto) Baso % (Auto) Neut # (Auto) Lymph # (Auto) [place] # (Auto) Eos # (Auto) Baso # (Auto) Retic Count Haptoglobin Sodium Potassium Chloride Carbon Dioxide Anion Gap BUN Creatinine Est GFR ( Amer) Est GFR (Non-Af Amer) Random Glucose Hemoglobin A1c 5.3 Calcium Phosphorus Magnesium Iron TIBC % Saturation Ferritin Total Bilirubin AST ALT Alkaline Phosphatase Lactate Dehydrogenase Troponin I 0.0180 Total Protein Albumin Globulin Albumin/Globulin Ratio Triglycerides Cholesterol LDL Cholesterol Direct HDL Cholesterol Free T4 1.49 TSH 3rd Generation Blood Type Antibody Screen MARIAELENA, Poly Interpret 10/03/17 19:42 WBC RBC Hgb Hct MCV MCH MCHC RDW Plt Count MPV Neut % (Auto) Lymph % (Auto) [place] % (Auto) Eos % (Auto) Baso % (Auto) Neut # (Auto) Lymph # (Auto) [place] # (Auto) Eos # (Auto) Baso # (Auto) Retic Count Haptoglobin Sodium 139 Potassium 3.6 Chloride 97 L Carbon Dioxide 27 Anion Gap 18 BUN 18 H Creatinine 0.9 Est GFR ( Amer) > 60 Est GFR (Non-Af Amer) > 60 Random Glucose 219 H Hemoglobin A1c Calcium 8.9 Phosphorus 4.1 Magnesium 2.2 Iron TIBC % Saturation Ferritin Total Bilirubin 0.6 AST 32 ALT 29 Alkaline Phosphatase 73 Lactate Dehydrogenase Troponin I Total Protein 7.7 Albumin 3.9 Globulin 3.8 Albumin/Globulin Ratio 1.0 Triglycerides Cholesterol LDL Cholesterol Direct HDL Cholesterol Free T4 TSH 3rd Generation Blood Type Antibody Screen MARIAELENA, Poly Interpret Assessment & Plan - Assessment and Plan (Free Text) Plan: Patient seen and evaluated personally by in Plan of care d/w the medical billing instructor and as documented
--- NOTE | 2017-10-03 11:07 | CARD ---
APPROVED REPORT EKG Measurement Heart [id number] <Conclusion> Normal sinus rhythm ST & T wave abnormality, consider inferolateral ischemia Abnormal ECG
--- NOTE | 2017-10-03 12:46 | CP.PCM.PN ---
<Sabra White - Last Filed: 10/03/17 16:04> Subjective - Date & Time of Evaluation Date of Evaluation: 10/03/17 Time of Evaluation: 12:44 - Subjective Subjective: Progress Note for Dr. Reich Patient seen and examined at bedside. Patient had 1 u PRBC overnight and had a hemoglobin of 9.5 from 8.5. Patient states she had some palpitations, dizziness , and ringing of her ears with breakfast this morning. Patient denies chest pain and shortness of breath. Patient states she has leg edema and right arm pain. 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 Patient states she is worried about the CT abdomen and pelvis and knows she will have an echo today. Patient denies fever, chills, nausea, vomiting. Objective - Vital Signs/Intake and Output Vital Signs (last 24 hours): Temp Pulse Resp BP Pulse Ox 99.1 F 81 20 124/61 94 L 10/03/17 08:49 10/03/17 08:49 10/03/17 08:49 10/03/17 09:15 10/03/17 08:49 Intake and Output: 10/03/17 10/03/17 06:59 18:59 Intake Total 722 Balance 722 - Medications Medications: Current Medications Amlodipine Besylate (Norvasc) 10 mg PO DAILY [facility] Last Admin: 10/03/17 09:14 Dose: 10 mg Aspirin (Aspirin Chewable) 81 mg PO DAILY [facility] Last Admin: 10/03/17 09:15 Dose: 81 mg Famotidine (Pepcid) 20 mg PO DAILY [facility] Last Admin: 10/03/17 09:14 Dose: 20 mg Furosemide (Lasix) 20 mg PO DAILY [facility] Last Admin: 10/03/17 09:15 Dose: 20 mg Heparin Sodium (Porcine) (Heparin) 5,000 units SC Q8 [facility] Last Admin: 10/03/17 06:06 Dose: 5,000 units Methylprednisolone (Solu-Medrol) 60 mg IV Q12 [facility] Last Admin: 10/03/17 09:14 Dose: 60 mg Metoprolol Succinate (Toprol Xl) 100 mg PO DAILY [facility] Last Admin: 10/03/17 09:14 Dose: 100 mg Potassium Chloride (K-Dur 20 Meq Er Tab) 40 meq PO DAILY [facility] Last Admin: 10/03/17 09:15 Dose: 40 meq Rosuvastatin Calcium (Crestor) 10 mg PO HS [facility] Last Admin: 10/02/17 22:53 Dose: 10 mg - Labs Labs: 10/03/17 07:11 10/03/17 07:11 PT 11.9 SECONDS (9.7-12.2) 10/02/17 18:14 INR 1.1 10/02/17 18:14 APTT 31 SECONDS (21-34) 10/02/17 18:14 Assessment and Plan - Assessment and Plan (Free Text) Assessment: stress test Friday per Dr. Krishnan 1.) Abnormal EKG changes - EKG: NSR rate of 74; Ischemic changes in the lateral/inferior leads - possibly secondary to Anemia vs. New onset CHF - Cardio: Dr. Krishnan: Patient for Stress test 10/06 - Trop negative x3 2.) New Onset CHF - proBNP: 1110 - f/u official chest xray: cardiomegaly - Cardio Consult: Dr. Krishnan --> help appreciated - Lasix 40 IV given in ER - Lasix 20mg po daily - Aspirin 81mg daily - Continue 2L NC - f/u ECHO Iron 70 TIBC 448 % Saturation 15 Ferritin 57.7 TSH 1.52 Free T4 46 3.) One month onset of Anemia - H/H 8.11/30 - Spoke with patient's sr community manager Dr. Tavares she states she believes this is due to hemolysis but would like further workup: - f/u Iron studies, LDH, Haptoglobin, Direct Pratt - Please call Dr. Tavares in the AM with results because if normal patient can continue follow up as outpatient - Dr. Tavares also request CT of chest/abd/pelvis with IV/PO Contrast: sigmoid diverticulitis. - please all Dr. Tavares with results - Patient was on Prednisone 50mg BID at home Dr. Tavares requested Ольга-Medrol 60IV q12h - Spoke with Dr. Krishnan and requested one unit of PRBC to be given - Stool Occult Negative - Continue to Monitor 4.) History of HTN - Continue home medication Norvasc 10mg daily hold if systolic bp<100 - Continue home medication Metoprolol XL 100mg daily hold if systolic bp <100 and HR <60 - per Dr. Krishnan request did not restart Losartan/HCTZ 100/25 due to stable b/p 5.) History of HLD - Crestor 10mg HS TG 90 Cholesterol 200 LDL 142 HDL 46 6.) Prophylaxis - Pepcid 20mg daily - Heparin q8SC - Heart Healthy Diet <Jen Reich V - Last Filed: 10/03/17 23:10> Objective - Vital Signs/Intake and Output Vital Signs (last 24 hours): Temp Pulse Resp BP Pulse Ox 97.9 F 80 20 142/72 96 10/03/17 16:30 10/03/17 16:30 10/03/17 16:30 10/03/17 16:30 10/03/17 16:30 - Medications Medications: Current Medications Acetaminophen (Tylenol 325mg Tab) 650 mg PO Q6 PRN PRN Reason: Pain, moderate (4-7) Amlodipine Besylate (Norvasc) 10 mg PO DAILY [facility] Last Admin: 10/03/17 09:14 Dose: 10 mg Aspirin (Aspirin Chewable) 81 mg PO DAILY [facility] Last Admin: 10/03/17 09:15 Dose: 81 mg Famotidine (Pepcid) 20 mg PO DAILY [facility] Last Admin: 10/03/17 09:14 Dose: 20 mg Furosemide (Lasix) 20 mg PO DAILY [facility] Last Admin: 10/03/17 09:15 Dose: 20 mg Heparin Sodium (Porcine) (Heparin) 5,000 units SC Q8 [facility] Last Admin: 10/03/17 22:52 Dose: 5,000 units Ciprofloxacin (Cipro 400mg/200ml Dsw) 400 mg in 200 mls @ 133 mls/hr IVPB Q12H [facility] PRN Reason: Protocol Last Admin: 10/03/17 19:57 Dose: 133 mls/hr Metronidazole (Flagyl) 500 mg in 100 mls @ 100 mls/hr IVPB Q8 [facility] PRN Reason: Protocol Last Admin: 10/03/17 22:51 Dose: Not Given Methylprednisolone (Solu-Medrol) 60 mg IV Q12 [facility] Last Admin: 10/03/17 22:53 Dose: 60 mg Metoprolol Succinate (Toprol Xl) 100 mg PO DAILY [facility] Last Admin: 10/03/17 09:14 Dose: 100 mg Morphine Sulfate (Morphine) 1 mg IVP Q4H PRN PRN Reason: Pain, moderate (4-7) Last Admin: 10/03/17 17:59 Dose: 1 mg Prednisone (Prednisone Tab) 30 mg PO DAILY [facility] Rosuvastatin Calcium (Crestor) 10 mg PO HS [facility] Last Admin: 10/03/17 22:51 Dose: 10 mg - Labs Labs: 10/03/17 07:11 10/03/17 19:42 PT 11.9 SECONDS (9.7-12.2) 10/02/17 18:14 INR 1.1 10/02/17 18:14 APTT 31 SECONDS (21-34) 10/02/17 18:14 Attending/Attestation - Attestation I have personally seen and examined this patient.: Yes I have fully participated in the care of the patient.: Yes I have reviewed all pertinent clinical information, including history, physical exam and plan: Yes Notes (Text): Patient seen, examined and case discussed with day-time resident. Patient was transfused 1 unit of PRBC overnight. Patient denies chest pain, denies palpitations, reports lightheadness, + murmur on exam, denies abdominal pain, denies black stools, denies BRBPR. Hemoglobin improved to 9.5 from 8.5. Haptoglobin within normal, 0.38 reticulocyte index: hypoproliferation, LDH: within normal patient completed CT abdomen/pelvis and echocardiogram Patient was seen and evaluated by cardiology; possible stress test for Friday Assessment/Plan 1.) Abnormal EKG changes Palpitations * EKG: NSR rate of 74; Ischemic changes in the lateral/inferior leads * Cardiology: Dr. Krishnan: Patient for Stress test 10/06 * Trop negative x3 * Lipid panel: TG 90, Cholesterol 200, LDL 142, HDL 46 * hemoglobin: 5.3 2.) New Onset CHF * Cardiology Consult: Dr. Kirshnan --> help appreciated * Aspirin 81mg PO daily * Continue home medication Norvasc 10mg daily hold if systolic bp<100 * Continue home medication Metoprolol XL 100mg daily hold if systolic bp <100 and HR <60 * pending echocardiogram to be completed * proBNP: 1110 * Lasix 20mg po daily * Crestor 10mg HS * Continue 2L NC * Lipid panel: TG 90, Cholesterol 200, LDL 142, HDL 46 * hemoglobin: 5.3 3) Anemia * Outpatient heme oncology: Dr. Tavares-->due to hemolysis? * unclear etiology * Has required iron transfusion * 1 unit of PRBC given 10/02/17 * hemoglobin improved to 9.5 from 8.5. Haptoglobin within normal, 0.38 reticulocyte index, LDH: within normal * Iron: 70, TIBC: 448, percent saturation: 15, Ferritin: 57.7, * 0.38 reticulocyte index: hypoproliferation, LDH: within normal * Dr. Tavares also request CT of chest/abd/pelvis with IV/PO Contrast: sigmoid diverticulitis: recommends colonoscopy following resolution * Resident Jesu on admission, spoke with Dr. Tavares requested Ольга-Medrol 60IV q12h and with Dr. Krishnan and requested one unit of PRBC to be given * Stool Occult Negative * Continue to Monitor 4) History of Hypertension * Continue home medication Norvasc 10mg daily hold if systolic bp<100 * Continue home medication Metoprolol XL 100mg daily hold if systolic bp <100 and HR <60 * per Dr. Krishnan request did not restart Losartan/HCTZ 100/25 due to stable b/p 5) Sigmoid diverticulitis * CT of chest/abd/pelvis with IV/PO Contrast: sigmoid diverticulitis: recommends colonoscopy following resolution * Ciprofloxcin 400mg IV Q 12H * Flagyl 500mg IV Q8H 6.) Lipid disorder * Crestor 10mg HS * Lipid panel: TG 90, Cholesterol 200, LDL 142, HDL 46 7.) Prophylaxis * Pepcid 20mg daily * Heparin 5000 units q8SC * Heart Healthy Diet
--- NOTE | 2017-10-03 13:29 | CARD ---
APPROVED REPORT EKG Measurement Heart [id number] <Conclusion> Normal sinus rhythm Normal ECG
--- NOTE | 2017-10-03 14:36 | CT ---
PROCEDURE: CT Chest, Abdomen and Pelvis with intravenous contrast HISTORY: Anemia of unkown origin, r/o occult malignancy COMPARISON: None. TECHNIQUE: IV dose administered: 100 mL Visipaque 320 Radiation dose: Total exam DLP = mGy-cm. This CT exam was performed using one or more of the following dose reduction techniques: Automated exposure control, adjustment of the mA and/or kV according to patient size, and/or use of iterative reconstruction technique. FINDINGS: CT CHEST WITH CONTRAST: LUNGS: No pulmonary mass. No infiltrate. Mild multi lobar mosaic attenuation, nonspecific. MEDIASTINUM: Unremarkable. Normal caliber aorta and pulmonary arterial trunk. No aortic dissection. Mild cardiomegaly. . Mitral annular calcification is noted. LYMPH NODES: Shotty subcentimeter mediastinal lymph nodes are identified. Evaluation of the hilar structures is limited technically. PLEURA: Unremarkable. No pneumothorax. No pleural fluid. BONES: Unremarkable. OTHER FINDINGS: None. CT ABDOMEN AND PELVIS: LIVER: Unremarkable. No gross lesion or ductal dilatation. GALLBLADDER AND BILE DUCTS: Status post cholecystectomy PANCREAS: Unremarkable. No gross lesion or ductal dilatation. SPLEEN: Unremarkable. ADRENALS: Unremarkable. No mass. KIDNEYS AND URETERS: Unremarkable. No hydronephrosis. No solid mass. VASCULATURE: Unremarkable. No aortic aneurysm. BOWEL: Sigmoid diverticulosis. Very mild streaky increased attenuation of the very sigmoid fat suspicious for mild diverticulitis. Mural thickening of the sigmoid colon is noted, nonspecific. Consider colonoscopy when clinically feasible to rule out malignancy. No bowel obstruction. Scattered colonic diverticulae elsewhere. . APPENDIX: Not identified. No secondary findings. PERITONEUM: No ascites or pneumoperitoneum. There is an infraumbilical ventral hernia containing only mesenteric fat. LYMPH NODES: Unremarkable. No enlarged lymph nodes. BLADDER: Poorly distended. REPRODUCTIVE: Unremarkable uterus. Additional minor findings as above. BONES: No acute fracture. OTHER FINDINGS: None. IMPRESSION: Possible mild sigmoid diverticulitis. Mural thickening of the sigmoid colon in association with suspected diverticulitis. Followup with colonoscopy to rule out neoplasm.
[2017-10-03] MEDS: Magnesium Sulfate 1 gm in D5W 1 GM/100 ML BAG IVPB SCH (16:47)
[2017-10-03] MEDS: metroNIDAZOLE IV 500 mg/100 ml 500 MG/100 ML BAG IVPB SCH ×2 (19:55→22:51)
[2017-10-03] MEDS: Ciprofloxacin 400mg/200ml D5W 400 MG/200 ML BAG IVPB SCH (19:57)
[2017-10-03 20:07] LABS: ALBUMIN 3.9 g/dL (3.5-5.0); ALT/SGPT 29 U/L (9-52); AST/SGOT 32 U/L (14-36); BLOOD UREA NITROGEN 18 mg/dL (7-17); CALCIUM 8.9 mg/dl (8.6-10.4); GFR AFRICAN-AMERICAN > 60; GFR NON-AFRICAN AMERICAN > 60
[2017-10-04] MEDS: Ciprofloxacin 400mg/200ml D5W 400 MG/200 ML BAG IVPB SCH ×2 (05:17→17:26)
[2017-10-04] MEDS: metroNIDAZOLE IV 500 mg/100 ml 500 MG/100 ML BAG IVPB SCH ×3 (07:05→21:13)
--- NOTE | 2017-10-04 07:39 | CP.PCM.PN ---
<ChristopherSabra - Last Filed: 10/04/17 11:08> Subjective - Date & Time of Evaluation Date of Evaluation: 10/04/17 Time of Evaluation: 07:36 - Subjective Subjective: Progress note Patient seen and examined at bedside. No acute events overnight. Patient states she's nervous about Friday, it was explained that her echo results showed concentric thickening of her ventricles therefore patient is not going to have a stress test but will have a catheterization instead Objective - Vital Signs/Intake and Output Vital Signs (last 24 hours): Temp Pulse Resp BP Pulse Ox 98.3 F 84 20 114/62 95 10/03/17 23:50 10/04/17 04:28 10/03/17 23:50 10/03/17 23:50 10/03/17 23:50 Intake and Output: 10/04/17 10/04/17 06:59 18:59 Intake Total 360 Balance 360 - Medications Medications: Current Medications Acetaminophen (Tylenol 325mg Tab) 650 mg PO Q6 PRN PRN Reason: Pain, moderate (4-7) Amlodipine Besylate (Norvasc) 10 mg PO DAILY [facility] Last Admin: 10/03/17 09:14 Dose: 10 mg Aspirin (Aspirin Chewable) 81 mg PO DAILY [facility] Last Admin: 10/03/17 09:15 Dose: 81 mg Famotidine (Pepcid) 20 mg PO DAILY [facility] Last Admin: 10/03/17 09:14 Dose: 20 mg Furosemide (Lasix) 20 mg PO DAILY [facility] Last Admin: 10/03/17 09:15 Dose: 20 mg Heparin Sodium (Porcine) (Heparin) 5,000 units SC Q8 [facility] Last Admin: 10/04/17 05:17 Dose: 5,000 units Ciprofloxacin (Cipro 400mg/200ml Dsw) 400 mg in 200 mls @ 133 mls/hr IVPB Q12H [facility] PRN Reason: Protocol Last Admin: 10/04/17 05:17 Dose: 133 mls/hr Metronidazole (Flagyl) 500 mg in 100 mls @ 100 mls/hr IVPB Q8 [facility] PRN Reason: Protocol Last Admin: 10/03/17 22:51 Dose: Not Given Methylprednisolone (Solu-Medrol) 60 mg IV Q12 [facility] Last Admin: 10/03/17 22:53 Dose: 60 mg Metoprolol Succinate (Toprol Xl) 100 mg PO DAILY [facility] Last Admin: 10/03/17 09:14 Dose: 100 mg Morphine Sulfate (Morphine) 1 mg IVP Q4H PRN PRN Reason: Pain, moderate (4-7) Last Admin: 10/03/17 17:59 Dose: 1 mg Prednisone (Prednisone Tab) 30 mg PO DAILY [facility] Rosuvastatin Calcium (Crestor) 10 mg PO HS [facility] Last Admin: 10/03/17 22:51 Dose: 10 mg - Labs Labs: 10/03/17 07:11 10/03/17 19:42 PT 11.9 SECONDS (9.7-12.2) 10/02/17 18:14 INR 1.1 10/02/17 18:14 APTT 31 SECONDS (21-34) 10/02/17 18:14 - Constitutional Appears: Non-toxic, No Acute Distress - Head Exam Head Exam: ATRAUMATIC, NORMAL INSPECTION, NORMOCEPHALIC - Eye Exam Eye Exam: EOMI, Normal appearance - ENT Exam ENT Exam: Mucous Membranes Moist, Normal Exam - Neck Exam Neck Exam: Full ROM, Normal Inspection - Respiratory Exam Respiratory Exam: Clear to Ausculation Bilateral, NORMAL BREATHING PATTERN - Cardiovascular Exam Cardiovascular Exam: REGULAR RHYTHM, +S1, +S2. absent: Bradycardia, Tachycardia - GI/Abdominal Exam GI & Abdominal Exam: Distended, Soft, Tenderness (LLQ tenderness to palptation, no rebound, no rigidity), Normal Bowel Sounds - Extremities Exam Extremities Exam: Full ROM, Normal Inspection. absent: Pedal Edema - Back Exam Back Exam: Full ROM, NORMAL INSPECTION. absent: CVA tenderness (L), CVA tenderness (R) - Neurological Exam Neurological Exam: Alert, Awake, CN II-XII Intact - Psychiatric Exam Psychiatric exam: Normal Affect, Normal Mood - Skin Skin Exam: Dry, Intact, Normal Color, Warm Assessment and Plan - Assessment and Plan (Free Text) Assessment: stress test Friday per Dr. Krishnan 1.) Abnormal EKG changes - EKG: NSR rate of 74; Ischemic changes in the lateral/inferior leads - possibly secondary to Anemia vs. New onset CHF - Cardio: Dr. Krishnan: Patient for catheterization 10/07 for further evaluation because of concentric thickening of heart on echocardiogram - Trop negative x3 2.) New Onset CHF - proBNP: 1110 - f/u official chest xray: cardiomegaly - Cardio Consult: Dr. Krishnan --> help appreciated - Lasix 40 IV given in ER - Lasix 20mg po daily - Aspirin 81mg daily - Continue 2L NC - f/u ECHO (final read) TSH 1.52 Free T4 46 3.) One month onset of Anemia - H/H 8.11/30 - Spoke with patient's supervisor cab Dr. Tavares she states she believes this is due to hemolysis but would like further workup: - f/u Iron studies, LDH, Haptoglobin, Direct Pratt - Please call Dr. Tavares in the AM with results because if normal patient can continue follow up as outpatient - Dr. Tavares also request CT of chest/abd/pelvis with IV/PO Contrast: sigmoid diverticulitis. - Dr. Tavares called with results - Patient was on Prednisone 50mg BID at home Dr. Tavares requested Ольга-Medrol 60IV q12h - Spoke with Dr. Krishnan and requested one unit of PRBC to be given - Stool Occult Negative - Continue to Monitor Iron 70 TIBC 448 % Saturation 15 Ferritin 57.7 4.) sigmoid diverticulitis, LLQ pain CT of chest/abd/pelvis with IV/PO Contrast: sigmoid diverticulitis. Cipro Flagyl 4.) History of HTN - Continue home medication Norvasc 10mg daily hold if systolic bp<100 - Continue home medication Metoprolol XL 100mg daily hold if systolic bp <100 and HR <60 - per Dr. Krishnan request did not restart Losartan/HCTZ 100/25 due to stable b/p 5.) History of HLD - Crestor 10mg HS TG 90 Cholesterol 200 LDL 142 HDL 46 6.) Prophylaxis - Pepcid 20mg daily - Heparin q8SC - Heart Healthy Diet Sabra White, DO PGY1 <Jen Reich V - Last Filed: 10/04/17 14:16> Objective - Vital Signs/Intake and Output Vital Signs (last 24 hours): Temp Pulse Resp BP Pulse Ox 98.7 F 85 20 140/70 97 10/04/17 08:00 10/04/17 08:00 10/04/17 08:00 10/04/17 10:17 10/04/17 08:00 Intake and Output: 10/04/17 10/04/17 06:59 18:59 Intake Total 360 Balance 360 - Medications Medications: Current Medications Acetaminophen (Tylenol 325mg Tab) 650 mg PO Q6 PRN PRN Reason: Pain, moderate (4-7) Amlodipine Besylate (Norvasc) 10 mg PO DAILY [facility] Last Admin: 10/04/17 10:17 Dose: 10 mg Aspirin (Aspirin Chewable) 81 mg PO DAILY [facility] Last Admin: 10/04/17 10:17 Dose: 81 mg Famotidine (Pepcid) 20 mg PO DAILY [facility] Last Admin: 10/04/17 10:16 Dose: 20 mg Furosemide (Lasix) 20 mg PO DAILY [facility] Last Admin: 10/04/17 10:17 Dose: 20 mg Heparin Sodium (Porcine) (Heparin) 5,000 units SC Q8 [facility] Last Admin: 10/04/17 13:29 Dose: 5,000 units Ciprofloxacin (Cipro 400mg/200ml Dsw) 400 mg in 200 mls @ 133 mls/hr IVPB Q12H [facility] PRN Reason: Protocol Last Admin: 10/04/17 05:17 Dose: 133 mls/hr Metronidazole (Flagyl) 500 mg in 100 mls @ 100 mls/hr IVPB Q8 [facility] PRN Reason: Protocol Last Admin: 10/04/17 13:32 Dose: 100 mls/hr Methylprednisolone (Solu-Medrol) 60 mg IV Q12 [facility] Last Admin: 10/04/17 10:17 Dose: 60 mg Metoprolol Succinate (Toprol Xl) 100 mg PO DAILY [facility] Last Admin: 10/04/17 10:17 Dose: 100 mg Morphine Sulfate (Morphine) 1 mg IVP Q4H PRN PRN Reason: Pain, moderate (4-7) Last Admin: 10/03/17 17:59 Dose: 1 mg Prednisone (Prednisone Tab) 30 mg PO DAILY [facility] Last Admin: 10/04/17 10:17 Dose: 30 mg Rosuvastatin Calcium (Crestor) 10 mg PO HS [facility] Last Admin: 10/03/17 22:51 Dose: 10 mg - Labs Labs: 10/04/17 10:42 10/04/17 10:42 PT 11.9 SECONDS (9.7-12.2) 10/02/17 18:14 INR 1.1 10/02/17 18:14 APTT 31 SECONDS (21-34) 10/02/17 18:14 Attending/Attestation - Attestation I have personally seen and examined this patient.: Yes I have fully participated in the care of the patient.: Yes I have reviewed all pertinent clinical information, including history, physical exam and plan: Yes Notes (Text): Patient seen, examined and case discussed with day-time resident. Patient was transfused 1 unit of PRBC overnight 10/03/17. Patient denies chest pain, denies palpitations, reports lightheadness, + murmur on exam, denies abdominal pain, denies black stools, denies BRBPR. Patient is scheduled for [facility] and Cardiac Cath on October 06, 2017, Friday. Stress test is contraindicated secondary to hypertrophic cardiomyopathy as noted by Dr Krishnan when read echocardiogram. Cardiology has request GI consult in light of diverticulitis noted on CT scan. Patient is started on IV abx to cover for diverticulitis. There is no LLQ tenderness on exam, belly is soft and no guarding appreciated. Resident has updated patient's supervisor cab, Dr Tavares in regards to findings--> follow-up outpatient. Assessment/Plan 1.) Abnormal EKG changes Palpitations * EKG: NSR rate of 74; Ischemic changes in the lateral/inferior leads * Cardiology: Dr. Krishnan help appreciated * Trop negative x3 * Lipid panel: TG 90, Cholesterol 200, LDL 142, HDL 46 * hemoglobin: 5.3 * Patient is scheduled for cardiac cath and [facility] for October 06. Will need to make NPO on Friday Night 2.) New Onset CHF Hypertrophic cardiomyopathy * Cardiology Consult: Dr. Krishnan --> help appreciated * Patient is scheduled for cardiac cath and [facility] for October 06. Will need to make NPO on Friday Night * Aspirin 81mg PO daily * c/w Norvasc 10mg daily hold if systolic bp<100 * c/w Metoprolol XL 100mg daily hold if systolic bp <100 and HR <60 * pending echocardiogram official to be completed * proBNP: 1110 * Lasix 20mg PO daily * Crestor 10mg HS * Continue 2L NC * Lipid panel: TG 90, Cholesterol 200, LDL 142, HDL 46 * hemoglobin: 5.3 3) Anemia * Outpatient heme oncology: Dr. Tavares-->due to hemolysis? * unclear etiology * Has required iron transfusion * 1 unit of PRBC given 10/02/17 * hemoglobin improved to 9.5 from 8.5. Haptoglobin within normal, 0.38 reticulocyte index, LDH: within normal * Iron: 70, TIBC: 448, percent saturation: 15, Ferritin: 57.7, * 0.38 reticulocyte index: hypoproliferation, LDH: within normal * Dr. Tavares also request CT of chest/abd/pelvis with IV/PO Contrast: sigmoid diverticulitis: recommends colonoscopy following resolution * Resident Jesu on admission, spoke with Dr. Tavares requested Ольга-Medrol 60IV q12h and with Dr. Krishnan and requested one unit of PRBC to be given * Stool Occult Negative * pending direct chantal test * Continue to Monitor 4) History of Hypertension * c/w Norvasc 10mg daily hold if systolic bp<100 * c/w Metoprolol XL 100mg daily hold if systolic bp <100 and HR <60 * per Dr. Krishnan request did not restart Losartan/HCTZ 100/25 due to stable b/p 5) Sigmoid diverticulitis * GI (Dr Lujan) as requested by cardiology to rule out GI malignancy * CT of chest/abd/pelvis with IV/PO Contrast: sigmoid diverticulitis: recommends colonoscopy following resolution * Ciprofloxcin 400mg IV Q 12H * Flagyl 500mg IV Q8H 6.) Lipid disorder * Crestor 10mg HS * Lipid panel: TG 90, Cholesterol 200, LDL 142, HDL 46 7.) Prophylaxis * Pepcid 20mg daily * Heparin 5000 units q8SC * Heart Healthy Diet Disposition: pending GI eval, to be scheduled for cardiac cath and [facility] for October with cardiology, pending official echocardiogram read
[2017-10-04] MEDS: Metoprolol Succinate 100 mg XL Tab PO SCH (10:17)
[2017-10-04 10:47] LABS: BASO % 0.2 % (0.0-2.0); HEMOGLOBIN 9.1 g/dL (11.0-16.0); LYMPH # 1.4 K/uL (1.0-4.3); LYMPH % 11.9 % (20.0-40.0); MEAN CORPUSCULAR HEMOGLOBIN 28.9 pg (27.0-31.0); MEAN CORPUSCULAR HGB CONC 32.8 g/dL (33.0-37.0); MEAN PLATELET VOLUME 9.3 fL (7.2-11.7); MONO # 0.6 K/uL (0.0-0.8); MONO % 4.6 % (0.0-10.0); NEUT % 83.3 % (50.0-75.0); NRBC % 0.1 % (0.0-2.0); RBC 3.15 Mil/uL (3.80-5.20)
[2017-10-04 11:12] LABS: ALBUMIN 3.8 g/dL (3.5-5.0); ALT/SGPT 21 U/L (9-52); AST/SGOT 27 U/L (14-36); BLOOD UREA NITROGEN 17 mg/dL (7-17); CALCIUM 8.8 mg/dl (8.6-10.4); GFR AFRICAN-AMERICAN > 60; GFR NON-AFRICAN AMERICAN > 60
[2017-10-04] MEDS ORDERED: Potassium Chloride 20 mEq ER Tab PO ONE (13:39)
[2017-10-04] MEDS: Saccharomyces Boulardi 250 mg Cap PO SCH (17:27)
[2017-10-05] MEDS: Ciprofloxacin 400mg/200ml D5W 400 MG/200 ML BAG IVPB SCH ×2 (04:46→18:04)
[2017-10-05] MEDS: metroNIDAZOLE IV 500 mg/100 ml 500 MG/100 ML BAG IVPB SCH ×3 (06:30→21:39)
--- NOTE | 2017-10-05 07:21 | CP.PCM.PN ---
<ChristopherSabra - Last Filed: 10/05/17 09:31> Subjective - Date & Time of Evaluation Date of Evaluation: 10/05/17 Time of Evaluation: 07:20 - Subjective Subjective: Progress Note Patient seen and examined at bedside. No acute events overnight. Patient denies fever, chills, nausea, vomiting, diarrhea. Patient admits to palpitations after eating food and drinking coffee yesterday. Patient admits to anxiety. Objective - Vital Signs/Intake and Output Vital Signs (last 24 hours): Temp Pulse Resp BP Pulse Ox 98.0 F 79 18 157/65 H 96 10/04/17 23:55 10/05/17 04:31 10/04/17 23:55 10/04/17 23:55 10/04/17 23:55 Intake and Output: 10/05/17 10/05/17 06:59 18:59 Intake Total 550 Balance 550 - Medications Medications: Current Medications Acetaminophen (Tylenol 325mg Tab) 650 mg PO Q6 PRN PRN Reason: Pain, moderate (4-7) Amlodipine Besylate (Norvasc) 10 mg PO DAILY [facility] Last Admin: 10/04/17 10:17 Dose: 10 mg Aspirin (Aspirin Chewable) 81 mg PO DAILY [facility] Last Admin: 10/04/17 10:17 Dose: 81 mg Famotidine (Pepcid) 20 mg PO DAILY [facility] Last Admin: 10/04/17 10:16 Dose: 20 mg Furosemide (Lasix) 20 mg PO DAILY [facility] Last Admin: 10/04/17 10:17 Dose: 20 mg Heparin Sodium (Porcine) (Heparin) 5,000 units SC Q8 [facility] Last Admin: 10/05/17 06:30 Dose: 5,000 units Ciprofloxacin (Cipro 400mg/200ml Dsw) 400 mg in 200 mls @ 133 mls/hr IVPB Q12H [facility] PRN Reason: Protocol Last Admin: 10/05/17 04:46 Dose: 133 mls/hr Metronidazole (Flagyl) 500 mg in 100 mls @ 100 mls/hr IVPB Q8 [facility] PRN Reason: Protocol Last Admin: 10/05/17 06:30 Dose: 100 mls/hr Metoprolol Succinate (Toprol Xl) 100 mg PO DAILY [facility] Last Admin: 10/04/17 10:17 Dose: 100 mg Morphine Sulfate (Morphine) 1 mg IVP Q4H PRN PRN Reason: Pain, moderate (4-7) Last Admin: 10/03/17 17:59 Dose: 1 mg Prednisone (Prednisone Tab) 30 mg PO DAILY [facility] Rosuvastatin Calcium (Crestor) 10 mg PO HS [facility] Last Admin: 10/04/17 21:12 Dose: 10 mg Saccharomyces Boulardii (Florastor) 250 mg PO BID [facility] Last Admin: 10/04/17 17:27 Dose: 250 mg - Labs Labs: 10/04/17 10:42 10/04/17 10:42 PT 11.9 SECONDS (9.7-12.2) 10/02/17 18:14 INR 1.1 10/02/17 18:14 APTT 31 SECONDS (21-34) 10/02/17 18:14 - Additional Findings Additional findings: Constitutional Appears: Non-toxic, No Acute Distress - Head Exam Head Exam: ATRAUMATIC, NORMAL INSPECTION, NORMOCEPHALIC - Eye Exam Eye Exam: EOMI, Normal appearance - ENT Exam ENT Exam: Mucous Membranes Moist, Normal Exam - Neck Exam Neck Exam: Full ROM, Normal Inspection - Respiratory Exam Respiratory Exam: Clear to Ausculation Bilateral, NORMAL BREATHING PATTERN - Cardiovascular Exam Cardiovascular Exam: REGULAR RHYTHM, +S1, +S2. absent: Bradycardia, Tachycardia - GI/Abdominal Exam GI & Abdominal Exam: Distended, Soft, Tenderness (LLQ tenderness to palptation, no rebound, no rigidity), Normal Bowel Sounds - Extremities Exam Extremities Exam: Full ROM, Normal Inspection. absent: Pedal Edema - Back Exam Back Exam: Full ROM, NORMAL INSPECTION. absent: CVA tenderness (L), CVA tenderness (R) - Neurological Exam Neurological Exam: Alert, Awake, CN II-XII Intact - Psychiatric Exam Psychiatric exam: Normal Affect, Normal Mood - Skin Skin Exam: Dry, Intact, Normal Color, Warm Assessment and Plan - Assessment and Plan (Free Text) Assessment: 1.) Abnormal EKG changes - EKG: NSR rate of 74; Ischemic changes in the lateral/inferior leads - possibly secondary to Anemia vs. New onset CHF - Cardio: Dr. Krishnan: Patient for catheterization 10/07 for further evaluation because of concentric thickening of heart on echocardiogram - Trop negative x3 2.) New Onset CHF - proBNP: 1110 - fchest xray: cardiomegaly - Cardio Consult: Dr. Krishnan --> help appreciated - Lasix 40 IV given in ER - Lasix 20mg po daily - Aspirin 81mg daily - Continue 2L NC - f/u ECHO (final read) TSH 1.52 Free T4 46 3.) One month onset of Anemia, Stool Occult Negative 10/03 - 10/03 Dr. Tavares she states she believes this is due to hemolysis but would like further workup. Patient was on Prednisone 50mg BID at home. Dr. Tavares requested Ольга-Medrol 60IV q12h - 10/[address] Krishnan and requested one unit of PRBC to be given - 10/04 Dr. Tavares was called with results of studies she requested (haptoglobin, LDH, Direct Chantal, CT of chest/abd/pelvis with IV/PO Contrast: sigmoid diverticulitis.) Dr. Tavares states she will follow up as outpatient. Predisone requested to taper off for the next two days. - Continue to Monitor Iron 70 TIBC 448 % Saturation 15 Ferritin 57.7 4.) sigmoid diverticulitis, LLQ pain CT of chest/abd/pelvis with IV/PO Contrast: sigmoid diverticulitis. Cipro Flagyl 4.) History of HTN - Continue home medication Norvasc 10mg daily hold if systolic bp<100 - Continue home medication Metoprolol XL 100mg daily hold if systolic bp <100 and HR <60 - per Dr. Krishnan request did not restart Losartan/HCTZ 100/25 due to stable b/p 5.) History of HLD - Crestor 10mg HS TG 90 Cholesterol 200 LDL 142 HDL 46 6.) Prophylaxis - Pepcid 20mg daily - Heparin q8SC - Heart Healthy Diet Sabra White DO PGY1 <Jen Reich V - Last Filed: 10/05/17 10:34> Objective - Vital Signs/Intake and Output Vital Signs (last 24 hours): Temp Pulse Resp BP Pulse Ox 97.0 F L 98 H 20 118/66 97 10/05/17 08:19 10/05/17 09:59 10/05/17 08:19 10/05/17 10:01 10/05/17 08:19 Intake and Output: 10/05/17 10/05/17 06:59 18:59 Intake Total 550 Balance 550 - Medications Medications: Current Medications Acetaminophen (Tylenol 325mg Tab) 650 mg PO Q6 PRN PRN Reason: Pain, moderate (4-7) Amlodipine Besylate (Norvasc) 10 mg PO DAILY [facility] Last Admin: 10/05/17 10:01 Dose: 10 mg Aspirin (Aspirin Chewable) 81 mg PO DAILY [facility] Last Admin: 10/05/17 10:01 Dose: 81 mg Famotidine (Pepcid) 20 mg PO DAILY [facility] Last Admin: 10/05/17 10:01 Dose: 20 mg Furosemide (Lasix) 20 mg PO DAILY [facility] Last Admin: 10/05/17 10:01 Dose: 20 mg Heparin Sodium (Porcine) (Heparin) 5,000 units SC Q8 [facility] Stop: 10/06/17 00:01 Last Admin: 10/05/17 06:30 Dose: 5,000 units Ciprofloxacin (Cipro 400mg/200ml Dsw) 400 mg in 200 mls @ 133 mls/hr IVPB Q12H [facility] PRN Reason: Protocol Last Admin: 10/05/17 04:46 Dose: 133 mls/hr Metronidazole (Flagyl) 500 mg in 100 mls @ 100 mls/hr IVPB Q8 [facility] PRN Reason: Protocol Last Admin: 10/05/17 06:30 Dose: 100 mls/hr Metoprolol Succinate (Toprol Xl) 100 mg PO DAILY [facility] Last Admin: 10/05/17 10:00 Dose: 100 mg Morphine Sulfate (Morphine) 1 mg IVP Q4H PRN PRN Reason: Pain, moderate (4-7) Last Admin: 10/03/17 17:59 Dose: 1 mg Prednisone (Prednisone Tab) 30 mg PO DAILY [facility] Last Admin: 10/05/17 10:01 Dose: 30 mg Rosuvastatin Calcium (Crestor) 10 mg PO HS [facility] Last Admin: 10/04/17 21:12 Dose: 10 mg Saccharomyces Boulardii (Florastor) 250 mg PO BID [facility] Last Admin: 10/05/17 10:01 Dose: 250 mg - Labs Labs: 10/05/17 07:59 10/05/17 07:59 PT 11.9 SECONDS (9.7-12.2) 10/02/17 18:14 INR 1.1 10/02/17 18:14 APTT 31 SECONDS (21-34) 10/02/17 18:14 Attending/Attestation - Attestation I have personally seen and examined this patient.: Yes I have fully participated in the care of the patient.: Yes I have reviewed all pertinent clinical information, including history, physical exam and plan: Yes Notes (Text): Patient seen, examined and case discussed with day-time resident. Patient denies chest pain, denies palpitations, reports lightheadness, + murmur on exam, denies abdominal pain, denies black stools, denies BRBPR. Patient is scheduled for [facility] and Cardiac Cath on October 06, 2017, Friday. Stress test is contraindicated secondary to hypertrophic cardiomyopathy as noted by Dr Krishnan when read echocardiogram. Cardiology has request GI consult in light of diverticulitis noted on CT scan. Patient is started on IV abx to cover for diverticulitis. There is no LLQ tenderness on exam, belly is soft and no guarding appreciated. Patient was seen by GI this morning per discussion with the patient. Patient reports in the past she used to drink alot of water and feel swollen in the legs. I have explained to her that she needs to cut her water otherwise the fluid will go into her lungs and legs and used her juice bottle since it hold 1.77 L on the bottle. Assessment/Plan 1.) Abnormal EKG changes Palpitations * EKG: NSR rate of 74; Ischemic changes in the lateral/inferior leads * Cardiology: Dr. Krishnan help appreciated * Trop negative x3 * Lipid panel: TG 90, Cholesterol 200, LDL 142, HDL 46 * hemoglobin: 5.3 * Patient is scheduled for cardiac cath and S[facility]OS[facility] for October 06. Will need to make NPO on Friday Night 2.) New Onset CHF Hypertrophic cardiomyopathy * Cardiology Consult: Dr. Krishnan --> help appreciated * Patient is scheduled for cardiac cath and [facility] for October 06. Will need to make NPO on Friday Night * Aspirin 81mg PO daily * c/w Norvasc 10mg daily hold if systolic bp<100 * c/w Metoprolol XL 100mg daily hold if systolic bp <100 and HR <60 * pending echocardiogram official to be completed * proBNP: 1110 * Lasix 20mg PO daily * Crestor 10mg HS * Continue 2L NC * Lipid panel: TG 90, Cholesterol 200, LDL 142, HDL 46 * hemoglobin: 5.3 3) Anemia * Outpatient heme oncology: Dr. Tavares-->due to hemolysis? * unclear etiology * Has required iron transfusion * 1 unit of PRBC given 10/02/17 * hemoglobin improved to 9.5 from 8.5. Haptoglobin within normal, 0.38 reticulocyte index, LDH: within normal * Iron: 70, TIBC: 448, percent saturation: 15, Ferritin: 57.7, * 0.38 reticulocyte index: hypoproliferation, LDH: within normal * Dr. Tavares also request CT of chest/abd/pelvis with IV/PO Contrast: sigmoid diverticulitis * Resident Jesu on admission, spoke with Dr. Tavares requested Ольга-Medrol 60IV q12h and with Dr. Krishnan and requested one unit of PRBC to be given * Resident Christopher has updated Dr Tavares as requested, recommends to PO steroid * Stool Occult Negative * pending direct chantal test * Continue to Monitor 4) History of Hypertension * c/w Norvasc 10mg daily hold if systolic bp<100 * c/w Metoprolol XL 100mg daily hold if systolic bp <100 and HR <60 * per Dr. Krishnan request did not restart Losartan/HCTZ 100/25 due to stable b/p 5) Sigmoid diverticulitis * GI (Dr Lujan) as requested by cardiology to rule out GI malignancy * CT of chest/abd/pelvis with IV/PO Contrast: sigmoid diverticulitis: recommends colonoscopy following resolution * Ciprofloxcin 400mg IV Q 12H * Flagyl 500mg IV Q8H 6.) Lipid disorder * Crestor 10mg HS * Lipid panel: TG 90, Cholesterol 200, LDL 142, HDL 46 7.) Leukocytosis * likely secondary to IV steroid * IV steroid d/c per heme-onc and transitioned to PO steroid 8.) Prophylaxis * Pepcid 20mg daily * Heparin 5000 units q8SC * Heart Healthy Diet * Fluid restriction Disposition: pending GI eval, to be scheduled for cardiac cath and [facility] for Friday, October 06 2017 with cardiology, pending official echocardiogram read, NPO after midnight. Fluid restriction education provided.
[2017-10-05 08:20] VITALS: RESP 20
[2017-10-05 08:21] LABS: BASO % 0.3 % (0.0-2.0); HEMOGLOBIN 8.7 g/dL (11.0-16.0); LYMPH # 4.6 K/uL (1.0-4.3); LYMPH % 35.7 % (20.0-40.0); MEAN CELL VOLUME 88.6 fL (81.0-99.0); MEAN CORPUSCULAR HEMOGLOBIN 28.8 pg (27.0-31.0); MEAN CORPUSCULAR HGB CONC 32.5 g/dL (33.0-37.0); MEAN PLATELET VOLUME 9.2 fL (7.2-11.7); MONO # 0.7 K/uL (0.0-0.8); MONO % 5.1 % (0.0-10.0); NEUT # 7.5 K/uL (1.8-7.0); NEUT % 58.9 % (50.0-75.0); NRBC % 0.1 % (0.0-2.0); RBC 3.02 Mil/uL (3.80-5.20); RED CELL DISTRIBUTION WIDTH 23.2 % (11.5-14.5); WHITE BLOOD COUNT 12.8 K/uL (4.8-10.8)
[2017-10-05 08:51] LABS: ALBUMIN 3.5 g/dL (3.5-5.0); ALT/SGPT 25 U/L (9-52); AST/SGOT 29 U/L (14-36); BLOOD UREA NITROGEN 23 mg/dL (7-17); CALCIUM 8.5 mg/dl (8.6-10.4); GFR AFRICAN-AMERICAN > 60; GFR NON-AFRICAN AMERICAN > 60
[2017-10-05] MEDS ORDERED: Potassium Chloride 20 mEq/15 ml LIQ UD PO ONE (09:30)
[2017-10-05] MEDS: Metoprolol Succinate 100 mg XL Tab PO SCH (10:00)
[2017-10-05] MEDS: Saccharomyces Boulardi 250 mg Cap PO SCH ×2 (10:01→18:01)
--- NOTE | 2017-10-05 13:36 | CP.PCM.CON ---
<ElkinsJennifer - Last Filed: 10/05/17 13:42> History of Present Illness - History of Present Illness History of Present Illness: PGY4 Initial GI Consult Veronica Abreu is a 62F with PMHx of anemia, HTN and HLD presents to the ER for anemia. Patient was sent over by Dr. Krishnan due to lab values. Patient states she was diagnosed when she went to have routine lab work done about a month ago. She states for the past month she has been feeling dizzy, tired, headache and palpitations. Pt states that she has been following with a sole rougher for anemia which was believed to be hemolytic. She denies any abd pain. Denies any BRBPR, melena, hematemsis or coffee-ground emesis. She had a colonoscopy and EGD by Dr Davis in 05/2017 which did not reveal any significant source of bleeding. Denies any recent loss, or trouble swallowing. CT of the abd revealed possible sigmoid diverticulitis. Past Medical History: new onset anemia, HTN and HLD, chronic right shoulder pain due to overuse (due to occupation) Past Surgical History: , appendectomy, vaginal gland removal, cyst removed from left breast x3, cholecystectomy, colonoscopy (May 2018/Normal) , endoscopy (May 2018/normal) Family History: Mom passed of [place] age 93; Dad passed of [place] age 64; Brother passed of [place] age 55 Social History: Quit smoking 25 years ago, smoked for 20 years about 4-5 cigarettes per day; Denies alcohol or illicit drug use. 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[employer]) Past Patient History - Past Medical History & Family History Past Medical History?: Yes - Past Social History Smoking Status: Never Smoked - CARDIAC Hx Hypercholesterolemia: Yes Hx Hypertension: Yes - PULMONARY Hx Respiratory Disorders: No - NEUROLOGICAL Hx Neurological Disorder: No - HEENT Hx HEENT Problems: No - RENAL Hx Chronic Kidney Disease: No - ENDOCRINE/METABOLIC Hx Endocrine Disorders: No - HEMATOLOGICAL/ONCOLOGICAL Hx Blood Disorders: No - INTEGUMENTARY Hx Dermatological Problems: No - MUSCULOSKELETAL/RHEUMATOLOGICAL Hx Musculoskeletal Disorders: Yes Hx Back Pain: Yes Hx Falls: No Hx Osteoarthritis: Yes - GASTROINTESTINAL Hx Gastrointestinal Disorders: No - GENITOURINARY/GYNECOLOGICAL Hx Genitourinary Disorders: No - PSYCHIATRIC Hx Substance Use: No - SURGICAL HISTORY Hx Appendectomy: Yes Hx Cholecystectomy: Yes - ANESTHESIA Hx Anesthesia: Yes Hx Anesthesia Reactions: No Hx Malignant Hyperthermia: No Meds Allergies/Adverse Reactions: Allergies Allergy/AdvReac Type Severity Reaction Status Date / Time No Known Allergies Allergy Verified 10/02/17 17:08 - Medications Medications: Current Medications Acetaminophen (Tylenol 325mg Tab) 650 mg PO Q6 PRN PRN Reason: Pain, moderate (4-7) Amlodipine Besylate (Norvasc) 10 mg PO DAILY [facility] Last Admin: 10/05/17 10:01 Dose: 10 mg Aspirin (Aspirin Chewable) 81 mg PO DAILY [facility] Last Admin: 10/05/17 10:01 Dose: 81 mg Famotidine (Pepcid) 20 mg PO DAILY [facility] Last Admin: 10/05/17 10:01 Dose: 20 mg Furosemide (Lasix) 20 mg PO DAILY [facility] Last Admin: 10/05/17 10:01 Dose: 20 mg Heparin Sodium (Porcine) (Heparin) 5,000 units SC Q8 [facility] Stop: 10/06/17 00:01 Last Admin: 10/05/17 13:11 Dose: 5,000 units Ciprofloxacin (Cipro 400mg/200ml Dsw) 400 mg in 200 mls @ 133 mls/hr IVPB Q12H [facility] PRN Reason: Protocol Last Admin: 10/05/17 04:46 Dose: 133 mls/hr Metronidazole (Flagyl) 500 mg in 100 mls @ 100 mls/hr IVPB Q8 [facility] PRN Reason: Protocol Last Admin: 10/05/17 13:12 Dose: 100 mls/hr Metoprolol Succinate (Toprol Xl) 100 mg PO DAILY [facility] Last Admin: 10/05/17 10:00 Dose: 100 mg Morphine Sulfate (Morphine) 1 mg IVP Q4H PRN PRN Reason: Pain, moderate (4-7) Last Admin: 10/03/17 17:59 Dose: 1 mg Prednisone (Prednisone Tab) 30 mg PO DAILY [facility] Last Admin: 10/05/17 10:01 Dose: 30 mg Rosuvastatin Calcium (Crestor) 10 mg PO HS [facility] Last Admin: 10/04/17 21:12 Dose: 10 mg Saccharomyces Boulardii (Florastor) 250 mg PO BID [facility] Last Admin: 10/05/17 10:01 Dose: 250 mg Physical Exam - Constitutional Appears: Well, No Acute Distress - Head Exam Head Exam: ATRAUMATIC, NORMOCEPHALIC - Eye Exam Eye Exam: Normal appearance - ENT Exam ENT Exam: Mucous Membranes Moist, Normal Exam - Neck Exam Neck exam: Positive for: Normal Inspection - Respiratory Exam Respiratory Exam: Clear to Auscultation Bilateral, NORMAL BREATHING PATTERN. absent: Rales, Rhonchi, Wheezes, Respiratory Distress - Cardiovascular Exam Cardiovascular Exam: REGULAR RHYTHM, +S1, +S2 - GI/Abdominal Exam GI & Abdominal Exam: Normal Bowel Sounds, Soft. absent: Firm, Guarding, Rebound , Rigid - Rectal Exam Rectal Exam: NORMAL INSPECTION - Extremities Exam Extremities exam: Negative for: joint swelling, pedal edema - Neurological Exam Neurological exam: Alert, Oriented x3 - Psychiatric Exam Psychiatric exam: Normal Affect, Normal Mood - Skin Skin Exam: Dry, Intact, Normal Color, Warm Results - Vital Signs Recent Vital Signs: Last Vital Signs Temp 97.0 F L 10/05/17 08:19 Pulse 81 10/05/17 12:00 Resp 20 10/05/17 08:19 BP 118/66 10/05/17 10:01 Pulse Ox 97 10/05/17 08:19 - Labs Result Diagrams: 10/05/17 07:59 10/05/17 07:59 Labs: Laboratory Results - last 24 hr 10/04/17 10/04/17 10/05/17 16:37 21:19 07:59 WBC 12.8 H RBC 3.02 L Hgb 8.7 L Hct 26.7 L MCV 88.6 MCH 28.8 MCHC 32.5 L RDW 23.2 H Plt Count 136 MPV 9.2 Neut % (Auto) 58.9 Lymph % (Auto) 35.7 [facility] % (Auto) 5.1 Eos % (Auto) 0.0 Baso % (Auto) 0.3 Neut # (Auto) 7.5 H Lymph # (Auto) 4.[address] [place] # (Auto) 0.7 Eos # (Auto) 0.0 Baso # (Auto) 0.0 Sodium Potassium Chloride Carbon Dioxide Anion Gap BUN Creatinine Est GFR ( Amer) Est GFR (Non-Af Amer) POC Glucose (mg/dL) 134 H 131 H Random Glucose Calcium Phosphorus Magnesium Total Bilirubin AST ALT Alkaline Phosphatase Total Protein Albumin Globulin Albumin/Globulin Ratio 10/05/17 10/05/17 07:59 11:59 WBC RBC Hgb Hct MCV MCH MCHC RDW Plt Count MPV Neut % (Auto) Lymph % (Auto) [facility] % (Auto) Eos % (Auto) Baso % (Auto) Neut # (Auto) Lymph # (Auto) [facility] # (Auto) Eos # (Auto) Baso # (Auto) Sodium 142 Potassium 3.5 L Chloride 101 Carbon Dioxide 29 Anion Gap 16 BUN 23 H Creatinine 0.7 Est GFR ( Amer) > 60 Est GFR (Non-Af Amer) > 60 POC Glucose (mg/dL) 97 Random Glucose 92 Calcium 8.5 L Phosphorus 3.6 Magnesium 2.0 Total Bilirubin 0.5 AST 29 ALT 25 Alkaline Phosphatase 63 Total Protein 6.8 Albumin 3.5 Globulin 3.3 Albumin/Globulin Ratio 1.0 Assessment & Plan - Assessment and Plan (Free Text) Assessment: This 62 year old female with PMHx of new onset anemia, HTN and HLD presents to the ER for anemia. Anemia hx of HTN HL Plan: -monitor H/H -recent colonoscopy revealed no mass or large polyps -unlikely that anemia is from GI source as rectal exam was neg -no indication for endoscopy at this time -can follow-up as an outpt -recommend high fiber diet -no clinical indication of diverticulitis -D/W Dr. Hawkins <Davi Hawkins - Last Filed: 10/05/17 16:17> Meds - Medications Medications: Current Medications Acetaminophen (Tylenol 325mg Tab) 650 mg PO Q6 PRN PRN Reason: Pain, moderate (4-7) Amlodipine Besylate (Norvasc) 10 mg PO DAILY [facility] Last Admin: 10/05/17 10:01 Dose: 10 mg Aspirin (Aspirin Chewable) 81 mg PO DAILY [facility] Last Admin: 10/05/17 10:01 Dose: 81 mg Famotidine (Pepcid) 20 mg PO DAILY [facility] Last Admin: 10/05/17 10:01 Dose: 20 mg Furosemide (Lasix) 20 mg PO DAILY [facility] Last Admin: 10/05/17 10:01 Dose: 20 mg Heparin Sodium (Porcine) (Heparin) 5,000 units SC Q8 [facility] Stop: 10/06/17 00:01 Last Admin: 10/05/17 13:11 Dose: 5,000 units Ciprofloxacin (Cipro 400mg/200ml Dsw) 400 mg in 200 mls @ 133 mls/hr IVPB Q12H [facility] PRN Reason: Protocol Last Admin: 10/05/17 04:46 Dose: 133 mls/hr Metronidazole (Flagyl) 500 mg in 100 mls @ 100 mls/hr IVPB Q8 [facility] PRN Reason: Protocol Last Admin: 10/05/17 13:12 Dose: 100 mls/hr Metoprolol Succinate (Toprol Xl) 100 mg PO DAILY [facility] Last Admin: 10/05/17 10:00 Dose: 100 mg Morphine Sulfate (Morphine) 1 mg IVP Q4H PRN PRN Reason: Pain, moderate (4-7) Last Admin: 10/03/17 17:59 Dose: 1 mg Prednisone (Prednisone Tab) 30 mg PO DAILY [facility] Last Admin: 10/05/17 10:01 Dose: 30 mg Rosuvastatin Calcium (Crestor) 10 mg PO HS [facility] Last Admin: 10/04/17 21:12 Dose: 10 mg Saccharomyces Boulardii (Florastor) 250 mg PO BID [facility] Last Admin: 10/05/17 10:01 Dose: 250 mg Results - Vital Signs Recent Vital Signs: Last Vital Signs Temp 98.3 F 10/05/17 15:10 Pulse 80 10/05/17 15:10 Resp 20 10/05/17 15:10 BP 125/72 10/05/17 15:10 Pulse Ox 98 10/05/17 15:10 - Labs Result Diagrams: 10/05/17 07:59 10/05/17 07:59 Labs: Laboratory Results - last 24 hr 10/04/17 10/04/17 10/05/17 16:37 21:19 07:59 WBC 12.8 H RBC 3.02 L Hgb 8.7 L Hct 26.7 L MCV 88.6 MCH 28.8 MCHC 32.5 L RDW 23.2 H Plt Count 136 MPV 9.2 Neut % (Auto) 58.9 Lymph % (Auto) 35.7 [facility] % (Auto) 5.1 Eos % (Auto) 0.0 Baso % (Auto) 0.3 Neut # (Auto) 7.5 H Lymph # (Auto) 4.[address] [facility] # (Auto) 0.7 Eos # (Auto) 0.0 Baso # (Auto) 0.0 Sodium Potassium Chloride Carbon Dioxide Anion Gap BUN Creatinine Est GFR ( Amer) Est GFR (Non-Af Amer) POC Glucose (mg/dL) 134 H 131 H Random Glucose Calcium Phosphorus Magnesium Total Bilirubin AST ALT Alkaline Phosphatase Total Protein Albumin Globulin Albumin/Globulin Ratio 10/05/17 10/05/17 07:59 11:59 WBC RBC Hgb Hct MCV MCH MCHC RDW Plt Count MPV Neut % (Auto) Lymph % (Auto) [facility] % (Auto) Eos % (Auto) Baso % (Auto) Neut # (Auto) Lymph # (Auto) [facility] # (Auto) Eos # (Auto) Baso # (Auto) Sodium 142 Potassium 3.5 L Chloride 101 Carbon Dioxide 29 Anion Gap 16 BUN 23 H Creatinine 0.7 Est GFR ( Amer) > 60 Est GFR (Non-Af Amer) > 60 POC Glucose (mg/dL) 97 Random Glucose 92 Calcium 8.5 L Phosphorus 3.6 Magnesium 2.0 Total Bilirubin 0.5 AST 29 ALT 25 Alkaline Phosphatase 63 Total Protein 6.8 Albumin 3.5 Globulin 3.3 Albumin/Globulin Ratio 1.0 Attending/Attestation - Attestation I have personally seen and examined this patient.: Yes I have fully participated in the care of the patient.: Yes I have reviewed all pertinent clinical information: Yes Notes (Text): 10/05/17 16:17 62 year old female who presents with anemia, abnormal CT of colon. She had recent EGD/Colonoscopy. Recommend outpatient follow up. Consider outpatient VCE. Will sign off.
--- NOTE | 2017-10-05 16:05 | CARD ---
APPROVED REPORT EXAM: Two-dimensional and M-mode echocardiogram with Doppler and color Doppler. Other Information Quality : GoodRhythm : INDICATION Congestive Heart Failure RISK FACTORS Hypertension Hyperlipidemia 2D DIMENSIONS IVSd1.3 (0.7-1.1cm)LVDd4.9 (3.9-5.9cm) LVOT Diameter1.5 (1.8-2.4cm)PWd1.3 (0.7-1.1cm) LVDs3.7 (2.5-4.0cm)FS (%) 23.3 % LVEF (%)46.6 (>50%) M-Mode DIMENSIONS Left Atrium (MM)6.59 (2.5-4.0cm)Aortic Root2.68 (2.2-3.7cm) Aortic Cusp Exc.1.57 (1.5-2.0cm) Aortic Valve AoV Peak Detalmrx871.0cm/sAoV VTI97.8cmAO Peak GR.93mmHg LVOT Peak Hxlbzqbw401.8cm/sLVOT VTI64.61cmAO Mean GR.46mmHg SO (VMAX)1.77oo5OGZ (VTI)1.24cm2 Mitral Valve MV E Ovvhjeyv383.7cm/sMV A Qhuogkdr78.9cm/sMV KYZ29bb MVA (PHT)4.44cm2 Tricuspid Valve TR Peak Flumyrkk564jj/sTR Peak Gr.79uzMpOTWM53mzBx LEFT VENTRICLE The left ventricle is normal size. There is normal left ventricular wall thickness. The left ventricular function is normal. The left ventricular ejection fraction is within the normal range. No regional wall motion abnormalities noted. No left ventricle thrombus noted on this study. There is no ventricular septal defect visualized. There is no left ventricular aneurysm. There is no mass noted in the left ventricle. RIGHT VENTRICLE The right ventricle is normal size. There is normal right ventricular wall thickness. The right ventricular systolic function is normal. ATRIA The left atrium is moderately dilated. The right atrium size is normal. The interatrial septum is intact with no evidence for an atrial septal defect. AORTIC VALVE The aortic valve is normal in structure and function. There is mild aortic regurgitation. There is no aortic valvular stenosis. There is no aortic valvular vegetation. MITRAL VALVE The mitral valve is normal in structure and function. Mitral annular calcification is mild to moderate. There is no evidence of mitral valve prolapse. There is no mitral valve stenosis. Mitral regurgitation is mild to moderate. TRICUSPID VALVE The tricuspid valve is normal in structure and function. There is moderate tricuspid regurgitation. Right ventricular systolic pressure is estimated at greater than 60 mmHg. There is no tricuspid valve prolapse or vegetation. There is no tricuspid valve stenosis. PULMONIC VALVE The pulmonary valve is normal in structure and function. There is no pulmonic valvular regurgitation. There is no pulmonic valvular stenosis. GREAT VESSELS The aortic root is normal in size. The ascending aorta is normal in size. The pulmonary artery is normal. The IVC is normal in size and collapses >50% with inspiration. PERICARDIAL EFFUSION The pericardium appears normal. There is no pleural effusion. <Conclusion> The left ventricular function is normal. The left ventricular ejection fraction is within the normal range. No regional wall motion abnormalities noted. The left atrium is moderately dilated. There is mild aortic regurgitation. Mitral regurgitation is mild to moderate. There is moderate tricuspid regurgitation. Right ventricular systolic pressure is estimated at greater than 60 mmHg.
--- NOTE | 2017-10-05 23:32 | CP.PCM.PN ---
Subjective - Date & Time of Evaluation Date of Evaluation: 10/04/17 Time of Evaluation: 07:30 - Subjective Subjective: Patient seen and evaluated ECHO suggests likely hypertrophic CMP (Likely symptomatic) Abnormal EKG and palpitations Will check Cath and SANTOSH Objective - Vital Signs/Intake and Output Vital Signs (last 24 hours): Temp Pulse Resp BP Pulse Ox 98.3 F 79 20 125/72 98 10/05/17 15:10 10/05/17 16:00 10/05/17 15:10 10/05/17 15:10 10/05/17 15:10 Intake and Output: 10/05/17 10/06/17 18:59 06:59 Intake Total 500 Balance 500 - Medications Medications: Current Medications Acetaminophen (Tylenol 325mg Tab) 650 mg PO Q6 PRN PRN Reason: Pain, moderate (4-7) Amlodipine Besylate (Norvasc) 10 mg PO DAILY [facility] Last Admin: 10/05/17 10:01 Dose: 10 mg Aspirin (Aspirin Chewable) 81 mg PO DAILY [facility] Last Admin: 10/05/17 10:01 Dose: 81 mg Famotidine (Pepcid) 20 mg PO DAILY [facility] Last Admin: 10/05/17 10:01 Dose: 20 mg Furosemide (Lasix) 20 mg PO DAILY [facility] Last Admin: 10/05/17 10:01 Dose: 20 mg Heparin Sodium (Porcine) (Heparin) 5,000 units SC Q8 [facility] Stop: 10/06/17 00:01 Last Admin: 10/05/17 21:40 Dose: 5,000 units Ciprofloxacin (Cipro 400mg/200ml Dsw) 400 mg in 200 mls @ 133 mls/hr IVPB Q12H [facility] PRN Reason: Protocol Last Admin: 10/05/17 18:04 Dose: 133 mls/hr Metronidazole (Flagyl) 500 mg in 100 mls @ 100 mls/hr IVPB Q8 [facility] PRN Reason: Protocol Last Admin: 10/05/17 21:39 Dose: 100 mls/hr Metoprolol Succinate (Toprol Xl) 100 mg PO DAILY [facility] Last Admin: 10/05/17 10:00 Dose: 100 mg Morphine Sulfate (Morphine) 1 mg IVP Q4H PRN PRN Reason: Pain, moderate (4-7) Last Admin: 10/03/17 17:59 Dose: 1 mg Prednisone (Prednisone Tab) 30 mg PO DAILY [facility] Last Admin: 10/05/17 10:01 Dose: 30 mg Rosuvastatin Calcium (Crestor) 10 mg PO HS [facility] Last Admin: 10/05/17 21:39 Dose: 10 mg Saccharomyces Boulardii (Florastor) 250 mg PO BID [facility] Last Admin: 10/05/17 18:01 Dose: 250 mg - Labs Labs: 10/05/17 07:59 10/05/17 07:59 PT 11.9 SECONDS (9.7-12.2) 10/02/17 18:14 INR 1.1 10/02/17 18:14 APTT 31 SECONDS (21-34) 10/02/17 18:14
--- NOTE | 2017-10-05 23:34 | CP.PCM.PN ---
Subjective - Date & Time of Evaluation Date of Evaluation: 10/05/17 Time of Evaluation: 20:35 - Subjective Subjective: Patient seen and evaluated ECHO suggests likely hypertrophic CMP (Likely symptomatic) Abnormal EKG and palpitations Will check Cath and SANTOSH (Cath tomorrow and SANTOSH Friday) Objective - Vital Signs/Intake and Output Vital Signs (last 24 hours): Temp Pulse Resp BP Pulse Ox 98.3 F 79 20 125/72 98 10/05/17 15:10 10/05/17 16:00 10/05/17 15:10 10/05/17 15:10 10/05/17 15:10 Intake and Output: 10/05/17 10/06/17 18:59 06:59 Intake Total 500 Balance 500 - Medications Medications: Current Medications Acetaminophen (Tylenol 325mg Tab) 650 mg PO Q6 PRN PRN Reason: Pain, moderate (4-7) Amlodipine Besylate (Norvasc) 10 mg PO DAILY [facility] Last Admin: 10/05/17 10:01 Dose: 10 mg Aspirin (Aspirin Chewable) 81 mg PO DAILY [facility] Last Admin: 10/05/17 10:01 Dose: 81 mg Famotidine (Pepcid) 20 mg PO DAILY [facility] Last Admin: 10/05/17 10:01 Dose: 20 mg Furosemide (Lasix) 20 mg PO DAILY [facility] Last Admin: 10/05/17 10:01 Dose: 20 mg Heparin Sodium (Porcine) (Heparin) 5,000 units SC Q8 [facility] Stop: 10/06/17 00:01 Last Admin: 10/05/17 21:40 Dose: 5,000 units Ciprofloxacin (Cipro 400mg/200ml Dsw) 400 mg in 200 mls @ 133 mls/hr IVPB Q12H [facility] PRN Reason: Protocol Last Admin: 10/05/17 18:04 Dose: 133 mls/hr Metronidazole (Flagyl) 500 mg in 100 mls @ 100 mls/hr IVPB Q8 [facility] PRN Reason: Protocol Last Admin: 10/05/17 21:39 Dose: 100 mls/hr Metoprolol Succinate (Toprol Xl) 100 mg PO DAILY [facility] Last Admin: 10/05/17 10:00 Dose: 100 mg Morphine Sulfate (Morphine) 1 mg IVP Q4H PRN PRN Reason: Pain, moderate (4-7) Last Admin: 10/03/17 17:59 Dose: 1 mg Prednisone (Prednisone Tab) 30 mg PO DAILY [facility] Last Admin: 10/05/17 10:01 Dose: 30 mg Rosuvastatin Calcium (Crestor) 10 mg PO HS [facility] Last Admin: 10/05/17 21:39 Dose: 10 mg Saccharomyces Boulardii (Florastor) 250 mg PO BID [facility] Last Admin: 10/05/17 18:01 Dose: 250 mg - Labs Labs: 10/05/17 07:59 10/05/17 07:59 PT 11.9 SECONDS (9.7-12.2) 10/02/17 18:14 INR 1.1 10/02/17 18:14 APTT 31 SECONDS (21-34) 10/02/17 18:14
[2017-10-06] MEDS ORDERED: Morphine 4 MG/ML VIAL IVP PRN (00:30)
[2017-10-06] MEDS: Ciprofloxacin 400mg/200ml D5W 400 MG/200 ML BAG IVPB SCH ×2 (04:50→16:59)
[2017-10-06] MEDS: metroNIDAZOLE IV 500 mg/100 ml 500 MG/100 ML BAG IVPB SCH ×3 (06:44→21:56)
[2017-10-06 08:01] LABS: BASO # 0.1 K/uL (0.0-0.2); BASO % 0.5 % (0.0-2.0); EOS % 0.1 % (0.0-4.0); LYMPH # 5.5 K/uL (1.0-4.3); LYMPH % 54.3 % (20.0-40.0); MEAN CELL VOLUME 89.4 fL (81.0-99.0); MEAN CORPUSCULAR HEMOGLOBIN 29.2 pg (27.0-31.0); MEAN CORPUSCULAR HGB CONC 32.7 g/dL (33.0-37.0); MEAN PLATELET VOLUME 9.4 fL (7.2-11.7); MONO # 0.7 K/uL (0.0-0.8); MONO % 6.6 % (0.0-10.0); NEUT # 3.9 K/uL (1.8-7.0); NEUT % 38.5 % (50.0-75.0); NRBC % 0.1 % (0.0-2.0); RBC 3.08 Mil/uL (3.80-5.20); RED CELL DISTRIBUTION WIDTH 24.5 % (11.5-14.5); WHITE BLOOD COUNT 10.2 K/uL (4.8-10.8)
[2017-10-06 08:25] LABS: ALB/GLOB RATIO 1.1 (1.0-2.1); ALBUMIN 3.3 g/dL (3.5-5.0); ALT/SGPT 41 U/L (9-52); AST/SGOT 57 U/L (14-36); BLOOD UREA NITROGEN 25 mg/dL (7-17); CALCIUM 8.3 mg/dl (8.6-10.4); GFR AFRICAN-AMERICAN > 60; GFR NON-AFRICAN AMERICAN > 60
--- NOTE | 2017-10-06 08:54 | CP.PCM.PN ---
Subjective - Date & Time of Evaluation Date of Evaluation: 10/06/17 Time of Evaluation: 08:51 - Subjective Subjective: Progress note for Dr. Elkins Patient to have cath today and SANTOSH moved up to today. Patient had no acute events overnight. Patient denies fever, chills, nausea, vomiting, abdominal pain. Patient admits to right shoulder and arm pain that is chronic due to tendonitis per patient. Patient expressed concern for procedure. Patient was reassured. Objective - Vital Signs/Intake and Output Vital Signs (last 24 hours): Temp Pulse Resp BP Pulse Ox 98.3 F 71 20 138/71 95 10/06/17 08:37 10/06/17 08:37 10/06/17 08:37 10/06/17 08:37 10/06/17 08:37 Intake and Output: 10/06/17 10/06/17 06:59 18:59 Intake Total 250 Balance 250 - Medications Medications: Current Medications Acetaminophen (Tylenol 325mg Tab) 650 mg PO Q6 PRN PRN Reason: Pain, moderate (4-7) Amlodipine Besylate (Norvasc) 10 mg PO DAILY [facility] Last Admin: 10/05/17 10:01 Dose: 10 mg Aspirin (Aspirin Chewable) 81 mg PO DAILY [facility] Last Admin: 10/05/17 10:01 Dose: 81 mg Famotidine (Pepcid) 20 mg PO DAILY [facility] Last Admin: 10/05/17 10:01 Dose: 20 mg Furosemide (Lasix) 20 mg PO DAILY [facility] Last Admin: 10/05/17 10:01 Dose: 20 mg Ciprofloxacin (Cipro 400mg/200ml Dsw) 400 mg in 200 mls @ 133 mls/hr IVPB Q12H [facility] PRN Reason: Protocol Last Admin: 10/06/17 04:50 Dose: 133 mls/hr Metronidazole (Flagyl) 500 mg in 100 mls @ 100 mls/hr IVPB Q8 [facility] PRN Reason: Protocol Last Admin: 10/06/17 06:44 Dose: 100 mls/hr Metoprolol Succinate (Toprol Xl) 100 mg PO DAILY [facility] Last Admin: 10/05/17 10:00 Dose: 100 mg Morphine Sulfate (Morphine) 1 mg IVP Q4H PRN PRN Reason: Pain, moderate (4-7) Prednisone (Prednisone Tab) 30 mg PO DAILY [facility] Last Admin: 10/05/17 10:01 Dose: 30 mg Rosuvastatin Calcium (Crestor) 10 mg PO HS [facility] Last Admin: 10/05/17 21:39 Dose: 10 mg Saccharomyces Boulardii (Florastor) 250 mg PO BID [facility] Last Admin: 10/05/17 18:01 Dose: 250 mg - Labs Labs: 10/06/17 07:47 10/06/17 07:47 PT 11.9 SECONDS (9.7-12.2) 10/02/17 18:14 INR 1.1 10/02/17 18:14 APTT 31 SECONDS (21-34) 10/02/17 18:14 - Additional Findings Additional findings: Constitutional Appears: Non-toxic, No Acute Distress - Head Exam Head Exam: ATRAUMATIC, NORMAL INSPECTION, NORMOCEPHALIC - Eye Exam Eye Exam: EOMI, Normal appearance - ENT Exam ENT Exam: Mucous Membranes Moist, Normal Exam - Neck Exam Neck Exam: Full ROM, Normal Inspection - Respiratory Exam Respiratory Exam: Clear to Ausculation Bilateral, NORMAL BREATHING PATTERN - Cardiovascular Exam Cardiovascular Exam: REGULAR RHYTHM, +S1, +S2. absent: Bradycardia, Tachycardia - GI/Abdominal Exam GI & Abdominal Exam: Distended, Soft, no tenderness, Normal Bowel Sounds - Extremities Exam Extremities Exam: Full ROM, Normal Inspection. absent: Pedal Edema - Back Exam Back Exam: Full ROM, NORMAL INSPECTION. absent: CVA tenderness (L), CVA tenderness (R) - Neurological Exam Neurological Exam: Alert, Awake, CN II-XII Intact - Psychiatric Exam Psychiatric exam: Normal Affect, Normal Mood - Skin Skin Exam: Dry, Intact, Normal Color, Warm Assessment and Plan - Assessment and Plan (Free Text) Assessment: 1.) Abnormal EKG changes - EKG: NSR rate of 74; Ischemic changes in the lateral/inferior leads, possibly secondary to Anemia vs. New onset CHF 2.) New Onset CHF - proBNP: 1110 - fchest xray: cardiomegaly - Cardio Consult: Dr. Krishnan --> help appreciated - Lasix 40 IV given in ER - Lasix 20mg po daily - Aspirin 81mg daily - Continue 2L NC - ECHO: LVF normal, EF normal range, left atrium is moderately dilated, mild aortic regurgitation, moderate tricuspid regurgitation, right ventricular systolic pressure >60mmHg. Cardio: Dr. Krishnan: Patient for catheterization 10/06 for further evaluation because of symptomatic hypertrophic cardiomyopathy on echocardiogram. 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 Tavares she states she believes this is due to hemolysis but would like further workup. Patient was on Prednisone 50mg BID at home. Dr. Tavares requested Ольга-Medrol 60IV q12h - 10/[address] Krishnan and requested one unit of PRBC to be given - 10/04 Dr. Tavares was called with results of studies she requested (haptoglobin, LDH, Direct Darcy, CT of chest/abd/pelvis with IV/PO Contrast: sigmoid diverticulitis.) Dr. Tavares states she will follow up as outpatient. Predisone requested to taper off for the next two days. - Continue to Monitor Iron 70 TIBC 448 % Saturation 15 Ferritin 57.7 4.) sigmoid diverticulitis, LLQ pain CT of chest/abd/pelvis with IV/PO Contrast: sigmoid diverticulitis. Sigmoid Diverticulitis suggested on CT abdomen/pelvis with IVPO contrast: GI Dr. Hawkins was consulted for CT abdomen showing irregular wall thickening suggestive of sigmoid diverticulitis. Patient is currently asymptomatic. Patient to follow up outpatient with colonoscopy and endoscopy Patient is on Cipro and Flagyl 4.) History of HTN - Continue home medication Norvasc 10mg daily hold if systolic bp<100 - Continue home medication Metoprolol XL 100mg daily hold if systolic bp <100 and HR <60 - per Dr. Krishnan request did not restart Losartan/HCTZ 100/25 due to stable b/p 5.) History of HLD - Crestor 10mg HS TG 90 Cholesterol 200 LDL 142 HDL 46 6.) Prophylaxis - Pepcid 20mg daily - Heparin q8SC - Heart Healthy Diet Sabra White DO PGY1
[2017-10-06] MEDS: Metoprolol Succinate 100 mg XL Tab PO SCH (10:38)
[2017-10-06] MEDS: Saccharomyces Boulardi 250 mg Cap PO SCH ×2 (10:38→17:40)
[2017-10-06] MEDS ORDERED: Lidocaine 4% (Laryng-O-Jet) Kit MM ONE (11:03)
[2017-10-06] MEDS ORDERED: Propofol 10 mg/ml Inj (20 ML) ONE (11:43)
[2017-10-06] MEDS ORDERED: Midazolam 2 MG/2 ML VIAL ONE ×2 (11:43→13:27)
[2017-10-06] MEDS ORDERED: Etomidate 20 mg/10ml Inj IV ONE (11:45)
[2017-10-06] MEDS ORDERED: Iodixanol 320 MG/ML 100 ML BOTTLE IV ONE (14:03)
[2017-10-06 14:17] LABS: ABG ALLEN TEST ARTERIAL; ARTERIAL BLOOD GAS HCO3 29.3 mmol/L (21-28); ARTERIAL BLOOD GAS HEMOGLOBIN 9.3 g/dL (11.7-17.4); ARTERIAL BLOOD GAS O2 SAT 93.9 % (95-98); ARTERIAL BLOOD GAS PCO2 49 mm/Hg (35-45); ARTERIAL BLOOD GAS PH 7.41 (7.35-7.45); ARTERIAL BLOOD GAS PO2 61 mm/Hg (80-100); ARTERIAL BLOOD GAS TCO2 32.6 mmol/L (22-28)
[2017-10-06 14:23] LABS: VENOUS BLOOD GAS BASE EXCESS 5.3 mmol/L (0.0-2.0); VENOUS BLOOD GAS PCO2 54 mmHg (40-60); VENOUS BLOOD GAS PO2 35 mm/Hg (30-55); VENOUS BLOOD PH 7.38 (7.32-7.43)
--- NOTE | 2017-10-06 23:02 | CP.PCM.PN ---
Subjective - Date & Time of Evaluation Date of Evaluation: 10/06/17 Time of Evaluation: 17:20 - Subjective Subjective: Patient s/p Cath and SANTOSH Findings suggestive of Hypertrophic Obstructive CMP Patient also has severe Pulmonary HTN Further mgt as out patient Objective - Vital Signs/Intake and Output Vital Signs (last 24 hours): Temp Pulse Resp BP Pulse Ox 97.5 F L 64 20 121/74 98 10/06/17 15:20 10/06/17 16:00 10/06/17 15:20 10/06/17 15:20 10/06/17 15:20 Intake and Output: 10/06/17 10/07/17 18:59 06:59 Intake Total 0 Output Total 900 850 Balance -900 -850 - Medications Medications: Current Medications Acetaminophen (Tylenol 325mg Tab) 650 mg PO Q6 PRN PRN Reason: Pain, moderate (4-7) Amlodipine Besylate (Norvasc) 10 mg PO DAILY [facility] Last Admin: 10/06/17 10:38 Dose: 10 mg Aspirin (Aspirin Chewable) 81 mg PO DAILY [facility] Last Admin: 10/06/17 10:38 Dose: 81 mg Famotidine (Pepcid) 20 mg PO DAILY [facility] Last Admin: 10/06/17 10:38 Dose: 20 mg Furosemide (Lasix) 20 mg PO DAILY [facility] Last Admin: 10/06/17 10:38 Dose: 20 mg Ciprofloxacin (Cipro 400mg/200ml Dsw) 400 mg in 200 mls @ 133 mls/hr IVPB Q12H [facility] PRN Reason: Protocol Last Admin: 10/06/17 16:59 Dose: 133 mls/hr Metronidazole (Flagyl) 500 mg in 100 mls @ 100 mls/hr IVPB Q8 [facility] PRN Reason: Protocol Last Admin: 10/06/17 21:56 Dose: 100 mls/hr Metoprolol Succinate (Toprol Xl) 100 mg PO DAILY [facility] Last Admin: 10/06/17 10:38 Dose: 100 mg Morphine Sulfate (Morphine) 1 mg IVP Q4H PRN PRN Reason: Pain, moderate (4-7) Prednisone (Prednisone Tab) 30 mg PO DAILY [facility] Last Admin: 10/06/17 10:38 Dose: 30 mg Rosuvastatin Calcium (Crestor) 10 mg PO HS [facility] Last Admin: 10/06/17 21:55 Dose: 10 mg Saccharomyces Boulardii (Florastor) 250 mg PO BID [facility] Last Admin: 10/06/17 17:40 Dose: 250 mg - Labs Labs: 10/06/17 07:47 10/06/17 07:47 PT 11.9 SECONDS (9.7-12.2) 10/02/17 18:14 INR 1.1 10/02/17 18:14 APTT 31 SECONDS (21-34) 10/02/17 18:14
[2017-10-07] MEDS: metroNIDAZOLE IV 500 mg/100 ml 500 MG/100 ML BAG IVPB SCH ×2 (05:34→13:56)
[2017-10-07] MEDS: Ciprofloxacin 400mg/200ml D5W 400 MG/200 ML BAG IVPB SCH (05:35)
--- NOTE | 2017-10-07 07:03 | CP.PCM.DIS ---
<Sabra White - Last Filed: 10/07/17 17:34> Provider - Provider Date of Admission: 10/02/17 20:52 Attending physician: Maurilio Elkins MD Consults: Dr. Krishnan Time Spent in preparation of Discharge (in minutes): 35 Diagnosis - Discharge Diagnosis (1) Hypertrophic obstructive cardiomyopathy Status: Acute Priority: High Hospital Course - Lab Results Lab Results: Most Recent Lab Values WBC 10.2 K/uL (4.8-10.8) 10/06/17 07:47 RBC 3.08 Mil/uL (3.80-5.20) L 10/06/17 07:47 Hgb 9.0 g/dL (11.0-16.0) L 10/06/17 07:47 Hct 27.5 % (34.0-47.0) L 10/06/17 07:47 MCV 89.4 fL (81.0-99.0) 10/06/17 07:47 MCH 29.2 pg (27.0-31.0) 10/06/17 07:47 MCHC 32.7 g/dL (33.0-37.0) L 10/06/17 07:47 RDW 24.5 % (11.5-14.5) H 10/06/17 07:47 Plt Count 135 K/uL (130-400) 10/06/17 07:47 MPV 9.4 fL (7.2-11.7) 10/06/17 07:47 Neut % (Auto) 38.5 % (50.0-75.0) L 10/06/17 07:47 Lymph % (Auto) 54.3 % (20.0-40.0) H 10/06/17 07:47 Piatt % (Auto) 6.6 % (0.0-10.0) 10/06/17 07:47 Eos % (Auto) 0.1 % (0.0-4.0) 10/06/17 07:47 Baso % (Auto) 0.5 % (0.0-2.0) 10/06/17 07:47 Neut # (Auto) 3.9 K/uL (1.8-7.0) 10/06/17 07:47 Lymph # (Auto) 5.5 K/uL (1.0-4.3) H 10/06/17 07:47 Piatt # (Auto) 0.7 K/uL (0.0-0.8) 10/06/17 07:47 Eos # (Auto) 0.0 K/uL (0.0-0.7) 10/06/17 07:47 Baso # (Auto) 0.1 K/uL (0.0-0.2) 04 07:47 Retic Count 4.7 % (0.5-1.5) H 10/02/17 22:39 Haptoglobin 116.4 mg/dL (30.0-200.0) 10/02/17 22:39 PT 11.9 SECONDS (9.7-12.2) 10/02/17 18:14 INR 1.1 10/02/17 18:14 APTT 31 SECONDS (21-34) 10/02/17 18:14 Puncture Site Arterial 10/06/17 14:05 pCO2 49 mm/Hg (35-45) H 10/06/17 14:05 pO2 35 mm/Hg (30-55) 10/06/17 14:18 HCO3 29.3 mmol/L (21-28) H 10/06/17 14:05 ABG pH 7.41 (7.35-7.45) 10/06/17 14:05 ABG Total CO2 32.6 mmol/L (22-28) H 10/06/17 14:05 ABG O2 Saturation 93.9 % (95-98) L 10/06/17 14:05 ABG Base Excess 5.7 mmol/L (-2.0-3.0) H 10/06/17 14:05 ABG Hemoglobin 9.3 g/dL (11.7-17.4) L 10/06/17 14:05 ABG Carboxyhemoglobin 2.4 % (0.5-1.5) H 10/06/17 14:05 POC ABG HHb (Measured) 5.9 % (0.0-5.0) H 10/06/17 14:05 ABG Methemoglobin 1.1 % (0.0-3.0) 10/06/17 14:05 Malik Test Arterial 10/06/17 14:05 VBG pH 7.38 (7.32-7.43) 10/06/17 14:18 VBG pCO2 54 mmHg (40-60) 10/06/17 14:18 VBG HCO3 28.2 mmol/L 10/06/17 14:18 VBG Total CO2 33.6 mmol/L (22-28) H 10/06/17 14:18 VBG O2 Sat (Calc) 68.7 % (40-65) H 10/06/17 14:18 VBG Base Excess 5.3 mmol/L (0.0-2.0) H 10/06/17 14:18 VBG Potassium 3.5 mmol/L (3.6-5.2) L 10/06/17 14:18 Hgb O2 Saturation 90.6 % (95.0-98.0) L 10/06/17 14:05 Sodium 139.0 mmol/l (132-148) 10/06/17 14:18 Chloride 101.0 mmol/L (98-107) 10/06/17 14:18 Glucose 105 mg/dl (65-105) 10/06/17 14:18 Lactate 2.1 mmol/L (0.7-2.1) 10/06/17 14:18 Crit Value Called To Dr krishnan 10/06/17 14:18 Crit Value Called By Ilir costa crt 10/06/17 14:18 Crit Value Read Back Y 10/06/17 14:18 Blood Gas Notified Time 1425 10/06/17 14:18 Sodium 144 mmol/L (132-148) 10/06/17 07:47 Potassium 3.8 mmol/L (3.6-5.2) 10/06/17 07:47 Chloride 103 mmol/L (98-107) 10/06/17 07:47 Carbon Dioxide 29 mmol/L (22-30) 10/06/17 07:47 Anion Gap 15 (10-20) 10/06/17 07:47 BUN 25 mg/dL (7-17) H 10/06/17 07:47 Creatinine 0.7 mg/dL (0.7-1.2) 10/06/17 07:47 Est GFR ( Amer) > 60 10/06/17 07:47 Est GFR (Non-Af Amer) > 60 10/06/17 07:47 POC Glucose (mg/dL) 111 mg/dL (65-110) H 10/05/17 21:07 Random Glucose 81 mg/dL (65-105) 10/06/17 07:47 Hemoglobin A1c 5.3 % (4.2-6.5) 10/03/17 07:11 Calcium 8.3 mg/dl (8.6-10.4) L 10/06/17 07:47 Phosphorus 3.4 mg/dL (2.5-4.5) 10/06/17 07:47 Magnesium 1.9 mg/dL (1.6-2.3) 10/06/17 07:47 Iron 70 ug/dL (37-170) 10/02/17 22:39 TIBC 448 ug/dL (250-450) 10/02/17 22:39 % Saturation 15 (20-55) L 10/02/17 22:39 Ferritin 57.7 ng/mL 10/02/17 22:39 Total Bilirubin 0.5 mg/dL (0.2-1.3) 10/06/17 07:47 AST 57 U/L (14-36) H D 10/06/17 07:47 ALT 41 U/L (9-52) 10/06/17 07:47 Alkaline Phosphatase 58 U/L (38-126) 10/06/17 07:47 Lactate Dehydrogenase 475 U/L (313-618) 10/02/17 22:39 Troponin I 0.0180 ng/mL (0.00-0.120) 10/03/17 19:32 NT-Pro-B Natriuret Pep 1110 pg/mL (0-900) H 10/02/17 18:14 Total Protein 6.5 g/dL (6.3-8.3) 10/06/17 07:47 Albumin 3.3 g/dL (3.5-5.0) L 10/06/17 07:47 Globulin 3.2 gm/dL (2.2-3.9) 10/06/17 07:47 Albumin/Globulin Ratio 1.1 (1.0-2.1) 10/06/17 07:47 Triglycerides 90 mg/dL (0-149) D 10/03/17 07:11 Cholesterol 200 mg/dL (0-199) H 10/03/17 07:11 LDL Cholesterol Direct 142 mg/dL (0-129) H 10/03/17 07:11 HDL Cholesterol 46 mg/dL (30-70) 10/03/17 07:11 Free T4 1.49 ng/dL (0.78-2.19) 10/03/17 07:11 TSH 3rd Generation 1.52 mIU/L (0.46-4.68) 10/03/17 07:11 Venous Blood Potassium 3.5 mmol/L (3.6-5.2) L 10/06/17 14:18 Stool Occult Blood Negative (NEGATIVE) 10/02/17 19:21 Blood Type O POSITIVE 10/02/17 18:14 Antibody Screen Negative 10/02/17 18:14 MARIAELENA, Poly Interpret Negative (NEGATIVE) 10/02/17 18:14 - Hospital Course Hospital Course: HPI HPI: 62 year old female with past medical history of new onset anemia, HTN and HLD presents to the ER for anemia. Patient was sent over by Dr. Krishnan due to lab values. Patient states she was diagnosed when she went to have routine lab work done about a month ago. She states for the past month she has been feeling dizzy, tired, headache and palpitations. She states for the past month she can only walk one block and then she feels tired. She states she sleeps with 2 pillows (unchanged for 5 years). She states the palpitations are primarily when she wakes up in the morning and last for a few seconds and then go away. She states she drinks cold water in the morning and it helps her palpitations stop. She states she notices her legs are swollen sometimes. 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 She denies chest pain, shortness of breath, nausea, vomiting, diarrhea, constipation, hematochezia, dysuria, hematuria, weight loss or weight gain, recent travel or sick contacts. Hospital Course Patient was found to have new onset CHF with BNP 1110, was given lasix. Patient was given steroids via IV during her stay which was changed to PO and tapered down. Patient had new onset anemia prior to coming to the hospital and has had a blood transfusion the night of admission. Patient had anemia work up: results discussed with Dr. Tavares by telephone. Patient to follow up with Dr. Tavares as outpatient for further workup. Patient's hemoglobin has been stable since admission. Patient had an echo that Dr. Krishnan was concern for Hypertrophic obstructive cardiomyopathy (HOCM), patient was scheduled for cardiac cath and SANTOSH. Patient had SANTOSH and cath 10/06 which showed Hypertrophic obstructive cardiomyopathy (HOCM). Per Dr. Krishnan, Patient will need ablation at [facility]. GI: Dr. Hawkins contacted for sigmoid diverticulitis found on CT abdomen/pelvis IVPO contrast. Patient to follow up with Dr. Hawkins as outpatient for colonoscopy and endoscopy 6 weeks after completing antibiotic medication. Losartan/hctz 100-25mg 1 tab PO QD, home medication discontinued per Dr. Krishnan due to stable bp during hospital stay The following instructions were explained in cambodian with the help of Steam Tank Operator Veronica and copy should be provided to her in Cameroonian: 1). You have an appointment with Registered Dietetic Technician Dr. Joey Sparks scheduled at 3 PM this Friday10/10/17 located at [address] [place] [address] in [place], [place] and his office number is [phone]. He will schedule you for Ablation at [facility]. 2). Schedule appointment up with your Blood Physician for follow up of your anemia. 3). Schedule an appointment with Stomach Specialist Dr. Hawkins by calling his office at [phone] for follow up of your colon inflammation. 4). Schedule an appointment with your Primary Care Physician Dr. Diomedes Martin to help coordinate your health care. This should take place in the next 7 days. 5). If the pain in the right lower leg remains, please notify Dr. Martin at the time of your appointment with him. You may use Tylenol 500 mg 1 tablet by mouth every 6 hours as needed for this pain. 6). The following prescriptions you will need to have filled at your pharmacy on your way home from the hospital. As already explained to you, please ONLY take these medications: Norvasc 10 mg, 1 tablet by mouth once a day (lunch), Disp #30 Metoprolol XL 100 mg, 1 tablet by mouth once a day (bedtime), Disp #30 Lipitor 20 mg, 1 tablet by mouth once a day (dinner), Disp #30 Aspirin 81 mg, 1 tablet by mouth once a day (breakfast), Disp #30 Lasix 20 mg, 1 tablet by mouth once a day (breakfast), Disp #30 Augmentin 875/125 mg, 1 tablet by mouth twice a day (breakfast and dinner) for 10 days, Disp #14 Florastor 250 mg, 1 tablet by mouth twice a day (2 hours after breakfast and 2 hours before dinner), Disp #40 Prednisone 10 mg, 2 tablets by mouth once day with breakfast on 10/08/17, 1 tablet by mouth once a day with breakfast on 10/09/17, Disp #3 7). Please make sure that you have a bannana with breakfast every day so that your potassium level does not go low. 8). Please take care and be well. Maurilio Elkins D.O. 1). Tiene chey cindy con el cardilogo Dr. Joey Sparks programado para las 3 p.m. junie viernes 10/10/17 ub[address] en [address] [place] [address] en [place], [place] y bartlett n kassandra de oficina es [phone]. l te programar para Ablation en [facility]. 2). Programe chey cindy con bartlett Mdico de Arjun para el seguimiento de bartlett anemia. 3). Programe chey cindy con el Especialista de [place] Dr. Hawkins llamando a bartlett oficina al [phone] para el seguimiento de la inflamacin de bartlett colon. 4). Programe chey cindy con bartlett mdico de atencin primaria, el Dr. Diomedes Martin , para ayudar a coordinar bartlett atencin mdica. Shafter debera tener lugar en los pr ximos 7 rosenberg. 5). Si el dolor en la parte inferior de la pierna derecha persiste, notifique a la Dra. Martin al momento de bartlett cindy con l. Puede usar Tylenol 500 mg 1 tableta por va oral cada 6 horas, segn sea necesario para junie dolor. 6). Las siguientes recetas que deber tener en bartlett farmacia en bartlett aldo a casa desde el hospital. Abilio ya se le explic, tome SOLAMENTE estos medicamentos: Norvasc 10 mg, 1 tableta por va oral chey vez al da (almuerzo), Disp # 30 Metoprolol XL 100 mg, 1 tableta por va oral chey vez al da (hora de acostarse) , Disp # 30 Lipitor 20 mg, 1 tableta por va oral chey vez al da (jo), Disp # 30 Aspirina 81 mg, 1 tableta por va oral chey vez al da (desayuno), Disp # 30 Lasix 20 mg, 1 tableta por va oral chey vez al da (desayuno), Disp # 30 Augmentin 875/125 mg, 1 tableta por va oral dos veces al da (desayuno y jo) bridgette 10 rosenberg, Disp # 14 Florastor 250 mg, 1 tableta por va oral dos veces al da (2 horas despus del desayuno y 2 horas antes de la jo), Disp # 40 Prednisona 10 mg, 2 tabletas por va oral chey vez al da con desayuno el 10/08/17 , 1 tableta por va oral chey vez al da con desayuno el 10/09/17, Disp # 3 7). Por favor, asegrese de tener un bannana con desayuno todos los rosenberg para que bartlett nivel de potasio no baje. 8). Por favor cudate y estate dominique. Maurilio Elkins D.O. This is a summary of events during hospital stay. Please see EMR for further information - Date & Time of H&P Date of H&P: 10/07/17 Time of H&P: 17:34 Discharge Exam - Head Exam Head Exam: ATRAUMATIC, NORMOCEPHALIC Discharge Plan - Discharge Medications Prescriptions: Amoxicillin/Clavulanate [Augmentin 875 MG-125 MG] 1 tab PO BID #20 tab Aspirin [Bruno Aspirin] 81 mg PO DAILY #30 tab.chew Atorvastatin [Lipitor] 20 mg PO DAILY 30 Days tab Furosemide [Lasix] 20 mg PO DAILY #30 tab Metoprolol Succinate [Toprol XL] 100 mg PO DAILY #30 tab Montelukast [Singulair] 10 mg PO DAILY #30 tab Prednisone 10 mg PO BID #3 tab.ds.pk Saccharomyces Boulardi [Florastor] 250 mg PO BID #40 cap - Follow Up Plan Condition: FAIR Disposition: HOME/ ROUTINE Instructions: Ciprofloxacin (Systemic), Heart Healthy Diet, Heart Failure, Adult (DC), Diverticulitis (DC), Cardiac Catheterization (DC), Metronidazole ( Systemic), Aspirin, Atorvastatin, Metoprolol, Normocytic Normochromic Anemia (DC ), Heart Failure (DC) Additional Instructions: The following instructions were explained in cambodian with the help of Steam Tank Operator Veronica and copy should be provided to her in Cameroonian: 1). You have an appointment with Registered Dietetic Technician Dr. Joey Sparks scheduled at 3 PM this Friday10/10/17 located at [address] [place] [address] in [place], [place] and his office number is [phone]. He will schedule you for Ablation at [facility]. 2). Schedule appointment up with your Blood Physician for follow up of your anemia. 3). Schedule an appointment with Stomach Specialist Dr. Hawkins by calling his office at [phone] for follow up of your colon inflammation. 4). Schedule an appointment with your Primary Care Physician Dr. Diomedes Martin to help coordinate your health care. This should take place in the next 7 days. 5). If the pain in the right lower leg remains, please notify Dr. Martin at the time of your appointment with him. You may use Tylenol 500 mg 1 tablet by mouth every 6 hours as needed for this pain. 6). The following prescriptions you will need to have filled at your pharmacy on your way home from the hospital. As already explained to you, please ONLY take these medications: Norvasc 10 mg, 1 tablet by mouth once a day (lunch), Disp #30 Metoprolol XL 100 mg, 1 tablet by mouth once a day (bedtime), Disp #30 Lipitor 20 mg, 1 tablet by mouth once a day (dinner), Disp #30 Aspirin 81 mg, 1 tablet by mouth once a day (breakfast), Disp #30 Lasix 20 mg, 1 tablet by mouth once a day (breakfast), Disp #30 Augmentin 875/125 mg, 1 tablet by mouth twice a day (breakfast and dinner) for 10 days, Disp #14 Florastor 250 mg, 1 tablet by mouth twice a day (2 hours after breakfast and 2 hours before dinner), Disp #40 Prednisone 10 mg, 2 tablets by mouth once day with breakfast on 10/08/17, 1 tablet by mouth once a day with breakfast on 10/09/17, Disp #3 7). Please make sure that you have a bannana with breakfast every day so that your potassium level does not go low. 8). Please take care and be well. Maurilio Elkins D.O. 1). Tiene chey cindy con el cardilogo Dr. Joey Sparks programado para las 3 p.m. junie viernes 10/10/17 ubicado en [address] [facility] en [place], [place] y bartlett n kassandra de oficina es [phone]. l te programar para Ablation en [facility]. 2). Programe chey cindy con bartlett Mdico de Arjun para el seguimiento de bartlett anemia. 3). Programe chey cindy con el Especialista de [place] Dr. Hawkins llhilary a bartlett oficina al [phone] para el seguimiento de la inflamacin de bartlett colon. 4). Programe chey cindy con bartlett mdico de atencin primaria, el Dr. Diomedes Martin , para ayudar a coordinar bartlett atencin mdica. Shafter debera tener lugar en los pr ximos 7 rosenberg. 5). Si el dolor en la parte inferior de la pierna derecha persiste, notifique a la Dra. Martin al momento de bartlett cindy con l. Puede usar Tylenol 500 mg 1 tableta por va oral cada 6 horas, segn sea necesario para junie dolor. 6). Las siguientes recetas que deber tener en bartlett farmacia en bartlett aldo a casa desde el hospital. Abilio ya se le explic, tome SOLAMENTE estos medicamentos: Norvasc 10 mg, 1 tableta por va oral chey vez al da (almuerzo), Disp # 30 Metoprolol XL 100 mg, 1 tableta por va oral chey vez al da (hora de acostarse) , Disp # 30 Lipitor 20 mg, 1 tableta por va oral chey vez al da (jo), Disp # 30 Aspirina 81 mg, 1 tableta por va oral chey vez al da (desayuno), Disp # 30 Lasix 20 mg, 1 tableta por va oral chey vez al da (desayuno), Disp # 30 Augmentin 875/125 mg, 1 tableta por va oral dos veces al da (desayuno y jo) bridgette 10 rosenberg, Disp # 14 Florastor 250 mg, 1 tableta por va oral dos veces al da (2 horas despus del desayuno y 2 horas antes de la jo), Disp # 40 Prednisona 10 mg, 2 tabletas por va oral chey vez al da con desayuno el 10/08/17 , 1 tableta por va oral chey vez al da con desayuno el 10/09/17, Disp # 3 7). Por favor, asegrese de tener un bannana con desayuno todos los rosenberg para que bartlett nivel de potasio no baje. 8). Por favor cudate y estate dominique. Maurilio Elkins D.O. Referrals: Joey Krishnan MD [Staff Provider] - Karoline Martin MD [Medical Doctor] - Davi Hawkins MD [Staff Provider] - <Maurilio Elkins - Last Filed: 10/07/17 19:42> Provider - Provider Date of Admission: 10/02/17 20:52 Attending physician: Maurilio Elkins MD Time Spent in preparation of Discharge (in minutes): 40 Hospital Course - Lab Results Lab Results: Most Recent Lab Values WBC 9.5 K/uL (4.8-10.8) 10/07/17 06:58 RBC 3.21 Mil/uL (3.80-5.20) L 10/07/17 06:58 Hgb 9.3 g/dL (11.0-16.0) L 10/07/17 06:58 Hct 28.3 % (34.0-47.0) L 10/07/17 06:58 MCV 88.2 fL (81.0-99.0) 10/07/17 06:58 MCH 29.0 pg (27.0-31.0) 10/07/17 06:58 MCHC 32.9 g/dL (33.0-37.0) L 10/07/17 06:58 RDW 23.5 % (11.5-14.5) H 10/07/17 06:58 Plt Count 131 K/uL (130-400) 10/07/17 06:58 MPV 9.0 fL (7.2-11.7) 10/07/17 06:58 Neut % (Auto) 47.9 % (50.0-75.0) L 10/07/17 06:58 Lymph % (Auto) 47.0 % (20.0-40.0) H 10/07/17 06:58 Piatt % (Auto) 4.7 % (0.0-10.0) 10/07/17 06:58 Eos % (Auto) 0.3 % (0.0-4.0) 10/07/17 06:58 Baso % (Auto) 0.1 % (0.0-2.0) 10/07/17 06:58 Neut # (Auto) 4.5 K/uL (1.8-7.0) 10/07/17 06:58 Lymph # (Auto) 4.5 K/uL (1.0-4.3) H 10/07/17 06:58 Piatt # (Auto) 0.4 K/uL (0.0-0.8) 10/07/17 06:58 Eos # (Auto) 0.0 K/uL (0.0-0.7) 10/07/17 06:58 Baso # (Auto) 0.0 K/uL (0.0-0.2) 10/07/17 06:58 Retic Count 4.7 % (0.5-1.5) H 10/02/17 22:39 Haptoglobin 116.4 mg/dL (30.0-200.0) 10/02/17 22:39 PT 11.9 SECONDS (9.7-12.2) 10/02/17 18:14 INR 1.1 10/02/17 18:14 APTT 31 SECONDS (21-34) 10/02/17 18:14 Puncture Site Arterial 10/06/17 14:05 pCO2 49 mm/Hg (35-45) H 10/06/17 14:05 pO2 35 mm/Hg (30-55) 10/06/17 14:18 HCO3 29.3 mmol/L (21-28) H 10/06/17 14:05 ABG pH 7.41 (7.35-7.45) 10/06/17 14:05 ABG Total CO2 32.6 mmol/L (22-28) H 10/06/17 14:05 ABG O2 Saturation 93.9 % (95-98) L 10/06/17 14:05 ABG Base Excess 5.7 mmol/L (-2.0-3.0) H 10/06/17 14:05 ABG Hemoglobin 9.3 g/dL (11.7-17.4) L 10/06/17 14:05 ABG Carboxyhemoglobin 2.4 % (0.5-1.5) H 10/06/17 14:05 POC ABG HHb (Measured) 5.9 % (0.0-5.0) H 10/06/17 14:05 ABG Methemoglobin 1.1 % (0.0-3.0) 10/06/17 14:05 Malik Test Arterial 10/06/17 14:05 VBG pH 7.38 (7.32-7.43) 10/06/17 14:18 VBG pCO2 54 mmHg (40-60) 10/06/17 14:18 VBG HCO3 28.2 mmol/L 10/06/17 14:18 VBG Total CO2 33.6 mmol/L (22-28) H 10/06/17 14:18 VBG O2 Sat (Calc) 68.7 % (40-65) H 10/06/17 14:18 VBG Base Excess 5.3 mmol/L (0.0-2.0) H 10/06/17 14:18 VBG Potassium 3.5 mmol/L (3.6-5.2) L 10/06/17 14:18 Hgb O2 Saturation 90.6 % (95.0-98.0) L 10/06/17 14:05 Sodium 139.0 mmol/l (132-148) 10/06/17 14:18 Chloride 101.0 mmol/L (98-107) 10/06/17 14:18 Glucose 105 mg/dl (65-105) 10/06/17 14:18 Lactate 2.1 mmol/L (0.7-2.1) 10/06/17 14:18 Crit Value Called To Dr krishnan 10/06/17 14:18 Crit Value Called By Ilir costa crt 10/06/17 14:18 Crit Value Read Back Y 10/06/17 14:18 Blood Gas Notified Time 1425 10/06/17 14:18 Sodium 144 mmol/L (132-148) 10/07/17 06:58 Potassium 3.5 mmol/L (3.6-5.2) L 10/07/17 06:58 Chloride 101 mmol/L (98-107) 10/07/17 06:58 Carbon Dioxide 28 mmol/L (22-30) 10/07/17 06:58 Anion Gap 19 (10-20) 10/07/17 06:58 BUN 25 mg/dL (7-17) H 10/07/17 06:58 Creatinine 0.7 mg/dL (0.7-1.2) 10/07/17 06:58 Est GFR ( Amer) > 60 10/07/17 06:58 Est GFR (Non-Af Amer) > 60 10/07/17 06:58 POC Glucose (mg/dL) 130 mg/dL (65-110) H 10/07/17 17:11 Random Glucose 85 mg/dL (65-105) 10/07/17 06:58 Hemoglobin A1c 5.3 % (4.2-6.5) 10/03/17 07:11 Calcium 8.5 mg/dl (8.6-10.4) L 10/07/17 06:58 Phosphorus 4.0 mg/dL (2.5-4.5) 10/07/17 06:58 Magnesium 1.9 mg/dL (1.6-2.3) 10/07/17 06:58 Iron 70 ug/dL (37-170) 10/02/17 22:39 TIBC 448 ug/dL (250-450) 10/02/17 22:39 % Saturation 15 (20-55) L 10/02/17 22:39 Ferritin 57.7 ng/mL 10/02/17 22:39 Total Bilirubin 0.4 mg/dL (0.2-1.3) 10/07/17 06:58 AST 56 U/L (14-36) H 10/07/17 06:58 ALT 56 U/L (9-52) H D 10/07/17 06:58 Alkaline Phosphatase 62 U/L (38-126) 10/07/17 06:58 Lactate Dehydrogenase 475 U/L (313-618) 10/02/17 22:39 Troponin I 0.0180 ng/mL (0.00-0.120) 10/03/17 19:32 NT-Pro-B Natriuret Pep 1110 pg/mL (0-900) H 10/02/17 18:14 Total Protein 6.5 g/dL (6.3-8.3) 10/07/17 06:58 Albumin 3.3 g/dL (3.5-5.0) L 10/07/17 06:58 Globulin 3.2 gm/dL (2.2-3.9) 10/07/17 06:58 Albumin/Globulin Ratio 1.0 (1.0-2.1) 10/07/17 06:58 Triglycerides 90 mg/dL (0-149) D 10/03/17 07:11 Cholesterol 200 mg/dL (0-199) H 10/03/17 07:11 LDL Cholesterol Direct 142 mg/dL (0-129) H 10/03/17 07:11 HDL Cholesterol 46 mg/dL (30-70) 10/03/17 07:11 Free T4 1.49 ng/dL (0.78-2.19) 10/03/17 07:11 TSH 3rd Generation 1.52 mIU/L (0.46-4.68) 10/03/17 07:11 Venous Blood Potassium 3.5 mmol/L (3.6-5.2) L 10/06/17 14:18 Stool Occult Blood Negative (NEGATIVE) 10/02/17 19:21 Blood Type O POSITIVE 10/02/17 18:14 Antibody Screen Negative 10/02/17 18:14 MARIAELENA, Poly Interpret Negative (NEGATIVE) 10/02/17 18:14 Attending/Attestation - Attestation I have personally seen and examined this patient.: Yes I have fully participated in the care of the patient.: Yes I have reviewed all pertinent clinical information, including history, physical exam and plan: Yes
[2017-10-07 07:14] LABS: BASO % 0.1 % (0.0-2.0); EOS % 0.3 % (0.0-4.0); HEMOGLOBIN 9.3 g/dL (11.0-16.0); LYMPH # 4.5 K/uL (1.0-4.3); MEAN CELL VOLUME 88.2 fL (81.0-99.0); MEAN CORPUSCULAR HGB CONC 32.9 g/dL (33.0-37.0); MONO # 0.4 K/uL (0.0-0.8); MONO % 4.7 % (0.0-10.0); NEUT # 4.5 K/uL (1.8-7.0); NEUT % 47.9 % (50.0-75.0); NRBC % 0.1 % (0.0-2.0); RBC 3.21 Mil/uL (3.80-5.20); RED CELL DISTRIBUTION WIDTH 23.5 % (11.5-14.5); WHITE BLOOD COUNT 9.5 K/uL (4.8-10.8)
[2017-10-07 07:52] LABS: ALBUMIN 3.3 g/dL (3.5-5.0); ALT/SGPT 56 U/L (9-52); AST/SGOT 56 U/L (14-36); BLOOD UREA NITROGEN 25 mg/dL (7-17); CALCIUM 8.5 mg/dl (8.6-10.4); GFR AFRICAN-AMERICAN > 60; GFR NON-AFRICAN AMERICAN > 60
[2017-10-07 08:23] VITALS: O2SAT 96
[2017-10-07] MEDS: Metoprolol Succinate 100 mg XL Tab PO SCH (10:04)
[2017-10-07] MEDS: Saccharomyces Boulardi 250 mg Cap PO SCH ×2 (10:04→17:26)
[2017-10-07] MEDS: Potassium Chloride 20 mEq/15 ml LIQ UD PO SCH ×3 (10:04→17:27)
--- NOTE | 2017-10-07 12:01 | CP.PCM.PN ---
<Gavino Jasso - Last Filed: 10/07/17 15:56> Subjective - Date & Time of Evaluation Date of Evaluation: 10/07/17 Time of Evaluation: 07:50 - Subjective Subjective: PGY2 Cardiology Progress Note for Dr. Krishnan Patient seen and examined at bedside. No acute distress. Patient denies chest pain, SOB, or LE edema. 12-point review of systems is otherwise negative without any additional acute complaints. Objective - Vital Signs/Intake and Output Vital Signs (last 24 hours): Temp Pulse Resp BP Pulse Ox 98.7 F 66 20 134/64 96 10/07/17 08:22 10/07/17 08:22 10/07/17 08:22 10/07/17 10:03 10/07/17 08:22 Intake and Output: 10/07/17 10/07/17 06:59 18:59 Intake Total 520 Output Total 1050 Balance -530 - Medications Medications: Current Medications Acetaminophen (Tylenol 325mg Tab) 650 mg PO Q6 PRN PRN Reason: Pain, moderate (4-7) Amlodipine Besylate (Norvasc) 10 mg PO DAILY [facility] Last Admin: 10/07/17 10:00 Dose: 10 mg Aspirin (Aspirin Chewable) 81 mg PO DAILY [facility] Last Admin: 10/07/17 10:02 Dose: 81 mg Famotidine (Pepcid) 20 mg PO DAILY [facility] Last Admin: 10/07/17 10:04 Dose: 20 mg Furosemide (Lasix) 20 mg PO DAILY [facility] Last Admin: 10/07/17 10:03 Dose: 20 mg Ciprofloxacin (Cipro 400mg/200ml Dsw) 400 mg in 200 mls @ 133 mls/hr IVPB Q12H ISAEL PRN Reason: Protocol Last Admin: 10/07/17 05:35 Dose: 133 mls/hr Metronidazole (Flagyl) 500 mg in 100 mls @ 100 mls/hr IVPB Q8 ISAEL PRN Reason: Protocol Last Admin: 10/07/17 05:34 Dose: 100 mls/hr Metoprolol Succinate (Toprol Xl) 100 mg PO DAILY [facility] Last Admin: 10/07/17 10:04 Dose: 100 mg Morphine Sulfate (Morphine) 1 mg IVP Q4H PRN PRN Reason: Pain, moderate (4-7) Potassium Chloride (Potassium Chloride Oral Soln) 20 meq PO Q3H [facility] Stop: 10/07/17 15:46 Last Admin: 10/07/17 10:04 Dose: 20 meq Prednisone (Prednisone Tab) 30 mg PO DAILY [facility] Last Admin: 10/07/17 10:00 Dose: 30 mg Rosuvastatin Calcium (Crestor) 10 mg PO HS [facility] Last Admin: 10/06/17 21:55 Dose: 10 mg Saccharomyces Boulardii (Florastor) 250 mg PO BID [facility] Last Admin: 10/07/17 10:04 Dose: 250 mg - Labs Labs: 10/07/17 06:58 10/07/17 06:58 PT 11.9 SECONDS (9.7-12.2) 10/02/17 18:14 INR 1.1 10/02/17 18:14 APTT 31 SECONDS (21-34) 10/02/17 18:14 - Additional Findings Additional findings: Constitutional Appears: Non-toxic, No Acute Distress - Head Exam Head Exam: ATRAUMATIC, NORMAL INSPECTION, NORMOCEPHALIC - Eye Exam Eye Exam: EOMI, Normal appearance - ENT Exam ENT Exam: Mucous Membranes Moist, Normal Exam - Neck Exam Neck Exam: Full ROM, Normal Inspection - Respiratory Exam Respiratory Exam: Clear to Ausculation Bilateral, NORMAL BREATHING PATTERN - Cardiovascular Exam Cardiovascular Exam: REGULAR RHYTHM, +S1, +S2. absent: Bradycardia, Tachycardia - GI/Abdominal Exam GI & Abdominal Exam: Distended, Soft, no tenderness, Normal Bowel Sounds - Extremities Exam Extremities Exam: Full ROM, Normal Inspection. absent: Pedal Edema - Back Exam Back Exam: Full ROM, NORMAL INSPECTION. 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 Patient should follow up with Dr. Krishnan, who will contact [facility]. Further mgt as out patient. - proBNP: 1110 - fchest xray: cardiomegaly - Lasix 20mg po daily - Aspirin 81mg daily - Continue 2L NC - ECHO: LVF normal, EF normal range, left atrium is moderately dilated, mild aortic regurgitation, moderate tricuspid regurgitation, right ventricular systolic pressure >60mmHg. History of HTN - Continue home medication Norvasc 10mg daily hold if systolic bp<100 - Continue home medication Metoprolol XL 100mg daily hold if systolic bp <100 and HR <60 - per Dr. Krishnan request did not restart Losartan/HCTZ 100/25 due to stable b/p History of HLD - Crestor 10mg HS TG 90 Cholesterol 200 LDL 142 HDL [address] Eulogio Jasso, PGY2 <Joey Krishnan - Last Filed: 10/07/17 23:38> Objective - Vital Signs/Intake and Output Vital Signs (last 24 hours): Temp Pulse Resp BP Pulse Ox 98.3 F 84 20 138/58 L 96 10/07/17 15:00 10/07/17 15:00 10/07/17 15:00 10/07/17 15:00 10/07/17 15:00 - Labs Labs: 10/07/17 06:58 10/07/17 06:58 PT 11.9 SECONDS (9.7-12.2) 10/02/17 18:14 INR 1.1 10/02/17 18:14 APTT 31 SECONDS (21-34) 10/02/17 18:14 Assessment and Plan - Assessment and Plan (Free Text) Plan: Patient seen and evaluated Plan of care d/w the executive assistant to president and as documented
--- NOTE | 2017-10-07 15:14 | CP.PCM.PCO ---
Physician Communication Note - Physician Communication Note Physician Communication Note: See above.
[2017-10-07 16:00] VITALS: BP 138/58; PULSE 84; TEMP 98.3
--- NOTE | 2017-10-08 14:47 | PQF CHF ---
This form is a permanent part of the medical record To Maurilio Elkins MD Patient was admitted with low Hgb/Hct history of Dyslipidemia , HTN. Diagnosed with Anemia and New onset CHF. Please specify the type of CHF - Systolic/Diastolic/ Acute/ Acute on Chronic Thank you. Clarification of your documentation is requested to better reflect the severity of illness and intensity of treatment of your patient. Indicators present [X] Diagnosis of CHF and/or history of CHF [X] BNP > 200 1110H [] Imaging Finding of Pulmonary Edema /Pleural Effusions [] Fluid/Volume Overload [] Pitting edema [] Ejection Fraction < 40% (Indicative of Systolic Heart Failure) [X] Ejection Fraction > 40% (Indicative of Diastolic Heart Failure) [] Dyspnea / Orthopenea / Paroxysmal Nocturnal Dyspnea [] Other: Location in the medical record that reflects the above clinical findings: [ Please see Echocardiogram] Treatment Provided: [Patient needs to have ablation of the hypertrophic cardiac muscle which has lead to the diastolic heart failure and is also the likely cause of her anemia] PHYSICIAN'S RESPONSE Based on your medical judgment of the clinical indicators outlined above, are you treating this patient for a known or suspected: [] Acute CHF [] Systolic [X] Diastolic [] Combined [] Chronic CHF [] Systolic [] Diastolic [] Combined [] Acute on Chronic CHF []Systolic [] Diastolic [] Combined [] CHF due hypertension [] Acute systolic []Chronic systolic [] Acute/ chronic systolic [] Other, please indicate: [] [] If Unable to Determine, please check the box, sign and date. Present On Admission (POA) Indicator: [X] Present at the time of admission [] Not present at the time of admission [] Clinically Undetermined In responding to this query, please exercise your independent professional judgment. The fact that a question is asked does not imply that any particular answer is desired or expected. Thank you for your clarification on this documentation. If you have any questions please call:[ ] * Thank you, [Magaly Lara, [facility] ] boarding kennel or cattery operator [email or web address]
== END 2017-10-07 18:30 | disposition home or self-care (01) | DRG 811 ==
LOC: C.ER 16:52 → C.9E 20:52 → C.6T 22:16
PROVIDERS: ADMIT Family Medicine; ATTEND Family Medicine
PROC: 30233N1 Transfusion of Nonautologous Red Blood Cells into Peripheral Vein, Percutaneous Approach (ICD-10-PCS; 2017-10-03)
PROC: B211YZZ Fluoroscopy of Multiple Coronary Arteries using Other Contrast (ICD-10-PCS; 2017-10-06)
PROC: B24BZZ4 Ultrasonography of Heart with Aorta, Transesophageal (ICD-10-PCS; 2017-10-06)
PROC: 4A023N8 Measurement of Cardiac Sampling and Pressure, Bilateral, Percutaneous Approach (ICD-10-PCS; principal; 2017-10-06 12:00)
PROC: B216YZZ Fluoroscopy of Right and Left Heart using Other Contrast (ICD-10-PCS; 2017-10-06 12:00)
DX: D64.9 Anemia, unspecified (principal); I50.33 Acute on chronic diastolic (congestive) heart failure; K57.32 Diverticulitis of large intestine without perforation or abscess without bleeding; I42.1 Obstructive hypertrophic cardiomyopathy; I11.0 Hypertensive heart disease with heart failure; D72.828 Other elevated white blood cell count; E78.00 Pure hypercholesterolemia, unspecified; I27.20 Pulmonary hypertension, unspecified; Z87.891 Personal history of nicotine dependence; Z90.49 Acquired absence of other specified parts of digestive tract; G89.29 Other chronic pain; M70.811 Other soft tissue disorders related to use, overuse and pressure, right shoulder; T38.0X5A Adverse effect of glucocorticoids and synthetic analogues, initial encounter